=== PATIENT | female | born 1990 | race African-American/Black ===

== ENCOUNTER 2019-10-13 15:47 | Observation (INO) | payer OTHER ==
--- NOTE | 2019-10-13 16:08 | PCM.PREANE ---
Preanesthetic Assessment - Anesthesia/Transfusion/Family Hx Anesthesia History: No Prior Anesthesia Family History of Anesthesia Reaction: No Transfusion History: No Prior Transfusion(s) - Physical Assessment NPO Status Date: 10/13/19 NPO Status Time: 08:00 Height: 1.63 m Weight: 81.647 kg ASA Class: 1E - Allergies Allergies/Adverse Reactions: Allergies Allergy/AdvReac Type Severity Reaction Status Date / Time No Known Allergies Allergy Verified 10/13/19 16:01 - Acknowledgements Anesthesia Type Planned: Spinal Pt an Appropriate Candidate for the Planned Anesthesia: Yes Alternatives and Risks of Anesthesia Discussed w Pt/Guardian: Yes Pt/Guardian Understands and Agrees with Anesthesia Plan: Yes PreAnesthesia Questionnaire CHARGE ACCOUNT CLERK History: Reports: Endocrine/Metabolic History: Reports: Obesity/BMI 30+ - Past Surgical History Head Surgeries/Procedures: Reports: None - SUBSTANCE USE Smoking Status *Q: Never Smoker Recreational Drug Use History: No - HOME MEDS Home Medications: Home Meds Ondansetron [Zofran] 4 mg PO ASDIRECTED PRN 10/13/19 [History] Promethazine [Phenergan] 25 mg PO ASDIRECTED PRN 10/13/19 [History]
[2019-10-13] MEDS ORDERED: Sodium Chloride 0.9% 20 ML ONE (16:11)
[2019-10-13] MEDS ORDERED: ceFAZolin 1 GM Vial ONE (16:11)
[2019-10-13] MEDS ORDERED: Misoprostol 200 MCG Tab PO PRN (16:52)
[2019-10-13] MEDS ORDERED: Water For Irrigation,Sterile 1,000 ML Container IRR PRN (16:52)
[2019-10-13] MEDS ORDERED: Nalbuphine 10 MG/1 ML Vial IVPUSH PRN (16:52)
[2019-10-13] MEDS ORDERED: Sodium Chloride 0.9% 2.5 ML Syringe FLUSH PRN (16:52)
[2019-10-13] MEDS ORDERED: Sodium Chloride 0.9% 10 ML Syringe FLUSH PRN (16:52)
[2019-10-13] MEDS ORDERED: Tranexamic Acid 1,000 MG in Sodium Chloride 0.9% 100 ML IV PRN (16:52)
[2019-10-13] MEDS ORDERED: Carboprost Tromethamine 250 MCG/1 ML Amp IM PRN (16:52)
[2019-10-13] MEDS ORDERED: Butorphanol 1 MG/ML SDV IVPUSH PRN (16:52)
[2019-10-13] MEDS ORDERED: Sodium Chloride 0.9% 10 ML SDV IV PRN (16:52)
[2019-10-13] MEDS ORDERED: Methylergonovine 0.2 MG/1 ML Amp IM PRN (16:52)
[2019-10-13] MEDS ORDERED: Lidocaine 1% 50 ML MDV INJECT PRN (16:52)
[2019-10-13] MEDS ORDERED: Lactated Ringers 1,000 ML IV SCH (17:00)
--- NOTE | 2019-10-13 17:13 | PCM.POSTAN ---
POST ANESTHESIA ASSESSMENT - MENTAL STATUS Mental Status: Alert - VITAL SIGNS Vital Signs: Last Vital Signs Temp 36.8 C 10/13/19 16:59 Pulse 64 10/13/19 17:09 Resp 14 10/13/19 17:09 BP 122/73 10/13/19 17:09 Pulse Ox 100 10/13/19 17:09 - RESPIRATORY Respiratory Status: Respiratory Rate WNL - CARDIOVASCULAR CV Status: Pulse Rate WNL - GASTROINTESTINAL GI Status: No Symptoms - POST OP HYDRATION Hydration Status: Adequate & Stable
--- NOTE | 2019-10-13 17:45 | OR ---
SURGEON: Jer Galarza MD DATE OF PROCEDURE: PREOPERATIVE DIAGNOSIS: Intrauterine at 22-23 weeks with cervical incompetence. POSTOPERATIVE DIAGNOSIS: Intrauterine at 22-23 weeks with cervical incompetence. OPERATION PERFORMED: Emergency Becker cerclage. PRIMARY SURGEON: Jer Galarza MD. OPERATING COST CLERK: OR tech. ANESTHESIA: Spinal, Dano Paulson. ESTIMATED BLOOD LOSS: Minimum. COMPLICATION: None. INDICATIONS FOR SURGERY: This patient is primigravida who has been followed in our office. She came here today for her 22 weeks' visit, which was unremarkable. She had really no risk factor other than the fact that she had multiple large fibroids in her uterus prior to her . The patient went today for her anatomy ultrasound, and she was found to have shortening of the cervix. Her cervical length was less than 1 cm and there was channeling of fluid into the cervical canal. I reviewed the ultrasound and concurred with the fact that the patient does have cervical incompetence. I did a speculum exam, and I could see the membrane was through the cervical opening, so we decided to do an emergency cerclage. I explained that to the patient and her , and we proceeded with the cerclage. PROCEDURE IN DETAIL: The patient was brought to the OR, properly identified. After adequate level of spinal anesthesia, the patient was placed in Trendelenburg position, and after waiting for 10 minutes for the amniotic fluid to recede from the cervical canal, we proceeded to prep and drape the patient as usual. Nicole catheter was used to empty the bladder and weighted speculum was placed in vagina. Using Mersilene band, Becker cerclage was performed in a circular fashion. Sutured around the cervix and tied with due amount of tension, did not strangle the cervix. Once was that accomplished, the procedure ended. The instrument and sponge count was correct. The patient tolerated the procedure well, went to recovery room in stable general condition. NINA / KRISTIN /[id number]
[2019-10-13] MEDS ORDERED: Acetaminophen/oxyCODONE 325-5 MG Tab PO PRN ×2 (21:56→21:59)
[2019-10-14] MEDS ORDERED: Betamethasone Acetate/Betamethasone Sod Phosphate 30 MG/5 ML MDV IM ONE (08:05)
--- NOTE | 2019-10-14 08:22 | PCM48HPAN ---
Post Anesthesia Note - EVALUATION WITHIN 48HRS OF ANESTHETIC Vital Signs in Normal Range: Yes Patient Participated in Evaluation: Yes Respiratory Function Stable: Yes Airway Patent: Yes Cardiovascular Function Stable: Yes Hydration Status Stable: Yes Pain Control Satisfactory: Yes Nausea and Vomiting Control Satisfactory: Yes Mental Status Recovered: Yes Vital Signs: Last Vital Signs Temp 36.3 C 10/14/19 04:00 Pulse 65 10/14/19 04:00 Resp 18 10/14/19 04:00 BP 136/75 10/14/19 04:00 Pulse Ox 100 10/14/19 04:00 - COMMENTS/OBSERVATIONS Free Text/Narrative:: Dressed and ready to go home.
--- NOTE | 2019-10-14 10:28 | PCM.OPNOTE ---
- General Post-Op/Procedure Note Date of Surgery/Procedure: 10/13/19 Operative Procedure(s): Becker Cerclage Pre Op Diagnosis: [id number], Cervical incompetance. Post-Op Diagnosis: Same Anesthesia Technique: Spinal Primary Surgeon: Jer Galarza Complications: None Condition: Good Free Text/Narrative:: Intake & Output 10/13/19 10/14/19 10/14/19 22:59 06:59 14:59 Intake Total 700 Output Total 375 Balance 700 -375
--- NOTE | 2019-10-14 10:29 | PCM.SURGPN ---
- General Info Date of Service: 10/14/19 POD#: 1 Functional Status: Reports: Pain Controlled - Review of Systems General: Reports: No Symptoms HEENT: Reports: No Symptoms Pulmonary: Reports: No Symptoms Cardiovascular: Reports: No Symptoms Gastrointestinal: Reports: No Symptoms Genitourinary: Reports: No Symptoms Musculoskeletal: Reports: No Symptoms Skin: Reports: No Symptoms Neurological: Reports: No Symptoms Psychiatric: Reports: No Symptoms - Patient Data Vitals - Most Recent: Last Vital Signs Temp 36.3 C 10/14/19 08:00 Pulse 76 10/14/19 08:00 Resp 14 10/14/19 08:00 BP 123/78 10/14/19 08:00 Pulse Ox 98 10/14/19 08:00 Weight - Most Recent: 81.647 kg I&O - Last 24 Hours: Intake & Output 10/13/19 10/14/19 10/14/19 22:59 06:59 14:59 Intake Total 700 Output Total 375 Balance 700 -375 Lab Results Last 24 Hrs: Laboratory Results - last 24 hr 10/13/19 10/13/19 Range/Units 20:26 20:26 WBC 9.39 (4.0-11.0) K/uL RBC 2.95 L (4.30-5.90) M/uL Hgb 8.4 L (12.0-16.0) g/dL Hct 26.8 L (36.0-46.0) % MCV 90.8 (80.0-98.0) fL MCH 28.5 (27.0-32.0) pg MCHC 31.3 (31.0-37.0) g/dL RDW Std Deviation 44.1 (28.0-62.0) fl RDW Coeff of Hermelindo 13 (11.0-15.0) % Plt Count 299 (150-400) K/uL MPV 10.00 (7.40-12.00) fL Nucleated RBC % 0.0 /100WBC Nucleated RBCs # 0 K/uL Blood Type A POSITIVE Antibody Screen NEGATIVE Med Orders - Current: Current Medications Butorphanol Tartrate (Stadol) 1 mg IVPUSH Q1H PRN PRN Reason: Pain Carboprost Tromethamine (Hemabate Ds) 250 mcg IM ASDIRECTED PRN PRN Reason: Post Hemorrhage Lactated Ringer's (Ringers, Lactated) 1,000 mls @ 150 mls/hr IV ASDIRECTED JASMYNE Last Admin: 10/13/19 16:00 Dose: 150 mls/hr Tranexamic Acid 1,000 mg/ (Sodium Chloride) 110 mls @ 660 mls/hr IV ONETIME PRN PRN Reason: Bleeding Lidocaine HCl (Xylocaine 1%) 50 ml INJECT ONETIME PRN PRN Reason: Laceration repair Methylergonovine Maleate (Methergine) 0.2 mg IM ASDIRECTED PRN PRN Reason: Post Hemorrhage Misoprostol (Cytotec) 200 mcg PO ONETIME PRN PRN Reason: Post Hemorrhage Nalbuphine HCl (Nubain) 10 mg IVPUSH Q1H PRN PRN Reason: Pain (severe 7-10) Oxycodone/Acetaminophen (Percocet 325-5 Mg) 1 tab PO Q4H PRN PRN Reason: Pain (moderate 4-6) Last Admin: 10/13/19 22:14 Dose: 1 tab Oxycodone/Acetaminophen (Percocet 325-5 Mg) 2 tab PO Q4H PRN PRN Reason: Pain (severe 7-10) Sodium Chloride (Saline Flush) 10 ml FLUSH ASDIRECTED PRN PRN Reason: Keep Vein Open Sodium Chloride (Saline Flush) 2.5 ml FLUSH ASDIRECTED PRN PRN Reason: Keep Vein Open Sodium Chloride (Normal Saline) 10 ml IV ASDIRECTED PRN PRN Reason: IV Use Sterile Water (Sterile Water For Irrigation) 1,000 ml IRR ASDIRECTED PRN PRN Reason: delivery Discontinued Medications Betamethasone Acet/Betameth SodPhos (Celestone Soluspan 6 Mg/Ml) 12 mg IM ONETIME ONE Stop: 10/14/19 08:06 Cefazolin Sodium (Ancef) Confirm Administered Dose 1 gm .ROUTE .STK-MED ONE Stop: 10/13/19 16:12 Sodium Chloride (Normal Saline) Confirm Administered Dose 20 mls @ as directed .ROUTE .STK-MED ONE Stop: 10/13/19 16:12 - Exam Wound/Incisions: Healing Well General: Alert, Oriented HEENT: Pupils Equal Neck: Supple Lungs: Clear to Auscultation, Normal Respiratory Effort Cardiovascular: Regular Rate, Regular Rhythm GI/Abdominal Exam: Normal Bowel Sounds, Soft, Non-Tender, No Organomegaly, No Distention, No Abnormal Bruit, No Mass, Pelvis Stable Extremities: Normal Inspection, Normal Range of Motion, Non-Tender, No Pedal Edema, Normal Capillary Refill Skin: Warm, Dry, Intact Neurological: No New Focal Deficit Psy/Mental Status: Alert, Normal Affect, Normal Mood Sepsis Event Note - Evaluation Sepsis Screening Result: No Definite Risk - Focused Exam Vital Signs: Vital Signs Temp Pulse Resp BP BP Pulse Ox 10/14/19 08:00 36.3 C 76 14 123/78 98 10/14/19 04:00 36.3 C 65 18 136/75 100 10/14/19 00:20 36.6 C 75 16 124/62 97 Date Exam was Performed: 10/14/19 Time Exam was Performed: 10:28 - Problem List Review Problem List Initiated/Reviewed/Updated: Yes - My Orders Last 24 Hours: Active Orders 24 hr Category Date Time Status Patient Status [ADT] Routine ADT 10/13/19 16:55 Active Heart Tones [RC] ASDIRECTED Care 10/13/19 16:52 Active May Shower [RC] ASDIRECTED Care 10/13/19 16:55 Active Notify Provider [RC] PRN Care 10/13/19 16:55 Active Ready for Discharge [RC] PER UNIT ROUTINE Care 10/14/19 08:21 Active Up ad [place] [RC] ASDIRECTED Care 10/13/19 16:55 Active Vital Signs [RC] PER UNIT ROUTINE Care 10/13/19 16:55 Active Regular Diet [DIET] Diet 10/13/19 Dinner Active RPR (SYPHILIS SERO) W/ RFLX [REF] Routine Lab 10/13/19 20:26 Received Acetaminophen/oxyCODONE [Percocet 325-5 MG] Med 10/13/19 21:56 Active 1 tab PO Q4H PRN Acetaminophen/oxyCODONE [Percocet 325-5 MG] Med 10/13/19 21:59 Active 2 tab PO Q4H PRN Butorphanol [Stadol] Med 10/13/19 16:52 Active 1 mg IVPUSH Q1H PRN Carboprost Tromethamine [Hemabate DS] Med 10/13/19 16:52 Active 250 mcg IM ASDIRECTED PRN Lactated Ringers [Ringers, Lactated] 1,000 ml Med 10/13/19 17:00 Active IV ASDIRECTED Lidocaine 1% [Xylocaine 1%] Med 10/13/19 16:52 Active 50 ml INJECT ONETIME PRN Methylergonovine [Methergine] Med 10/13/19 16:52 Active 0.2 mg IM ASDIRECTED PRN Nalbuphine [Nubain] Med 10/13/19 16:52 Active 10 mg IVPUSH Q1H PRN Sodium Chloride 0.9% [Normal Saline] Med 10/13/19 16:52 Active 10 ml IV ASDIRECTED PRN Sodium Chloride 0.9% [Saline Flush] Med 10/13/19 16:52 Active 10 ml FLUSH ASDIRECTED PRN Sodium Chloride 0.9% [Saline Flush] Med 10/13/19 16:52 Active 2.5 ml FLUSH ASDIRECTED PRN Tranexamic Acid [Cyklokapron] 1,000 mg Med 10/13/19 16:52 Active Sodium Chloride 0.9% [Normal Saline] 100 ml IV ONETIME Water For Irrigation,Sterile [Sterile Water for Med 10/13/19 16:52 Active Irrigation] 1,000 ml IRR ASDIRECTED PRN miSOPROStoL [Cytotec] Med 10/13/19 16:52 Active 200 mcg PO ONETIME PRN Peripheral IV Insertion Adult [OM.PC] Routine Oth 10/13/19 16:55 Ordered Resuscitation Status Routine Resus Stat 10/13/19 16:52 Ordered Medication Orders Butorphanol Tartrate (Stadol) 1 mg IVPUSH Q1H PRN PRN Reason: Pain Carboprost Tromethamine (Hemabate Ds) 250 mcg IM ASDIRECTED PRN PRN Reason: Post Hemorrhage Lactated Ringer's (Ringers, Lactated) 1,000 mls @ 150 mls/hr IV ASDIRECTED JASMYNE Last Admin: 10/13/19 16:00 Dose: 150 mls/hr Tranexamic Acid 1,000 mg/ (Sodium Chloride) 110 mls @ 660 mls/hr IV ONETIME PRN PRN Reason: Bleeding Lidocaine HCl (Xylocaine 1%) 50 ml INJECT ONETIME PRN PRN Reason: Laceration repair Methylergonovine Maleate (Methergine) 0.2 mg IM ASDIRECTED PRN PRN Reason: Post Hemorrhage Misoprostol (Cytotec) 200 mcg PO ONETIME PRN PRN Reason: Post Hemorrhage Nalbuphine HCl (Nubain) 10 mg IVPUSH Q1H PRN PRN Reason: Pain (severe 7-10) Oxycodone/Acetaminophen (Percocet 325-5 Mg) 1 tab PO Q4H PRN PRN Reason: Pain (moderate 4-6) Last Admin: 10/13/19 22:14 Dose: 1 tab Oxycodone/Acetaminophen (Percocet 325-5 Mg) 2 tab PO Q4H PRN PRN Reason: Pain (severe 7-10) Sodium Chloride (Saline Flush) 10 ml FLUSH ASDIRECTED PRN PRN Reason: Keep Vein Open Sodium Chloride (Saline Flush) 2.5 ml FLUSH ASDIRECTED PRN PRN Reason: Keep Vein Open Sodium Chloride (Normal Saline) 10 ml IV ASDIRECTED PRN PRN Reason: IV Use Sterile Water (Sterile Water For Irrigation) 1,000 ml IRR ASDIRECTED PRN PRN Reason: delivery - Assessment Assessment (Free Text/Narrative):: Sports emergency Becker's cerclage the patient have no bleeding and no contraction and no evidence of rupture membrane. We will give her her first dose of the steroid today and we'll send her home to be followed in the office next Sunday - Plan Plan (Free Text/Narrative):: Bedrest to be followed in the office next Sunday
--- NOTE | 2019-10-14 10:30 | PCM.DCSUM1 ---
Discharge Summary - Hospital Course Diagnosis: Stroke: No - Discharge Data Discharge Date: 10/14/19 Discharge Disposition: Home, Self-Care 01 Condition: Good - Referral to Home Health Primary Care Physician: Jer Galarza MD - Patient Summary/Data Operative Procedure(s) Performed: Becker Cerclage - Patient Instructions Diet: Usual Diet as Tolerated Activity: As Tolerated Driving: Do Not Drive Showering/Bathing: May Shower - Discharge Plan Home Medications: Home Meds Ondansetron [Zofran] 4 mg PO ASDIRECTED PRN 10/13/19 [History] Promethazine [Phenergan] 25 mg PO ASDIRECTED PRN 10/13/19 [History] Patient Handouts: Cervical Cerclage, Betamethasone injection, Cervical Cerclage , Care After Referrals: [facility] [Outside] Jer Galarza MD [Primary Care Provider] - 10/17/19 1:15 pm - Discharge Summary/Plan Comment DC Time >30 min.: Yes - General Info Date of Service: 10/14/19 Functional Status: Reports: Pain Controlled - Review of Systems General: Reports: No Symptoms HEENT: Reports: No Symptoms Pulmonary: Reports: No Symptoms Cardiovascular: Reports: No Symptoms Gastrointestinal: Reports: No Symptoms Genitourinary: Reports: No Symptoms Musculoskeletal: Reports: No Symptoms Skin: Reports: No Symptoms Neurological: Reports: No Symptoms Psychiatric: Reports: No Symptoms - Patient Data Vitals - Most Recent: Last Vital Signs Temp 36.3 C 10/14/19 08:00 Pulse 76 10/14/19 08:00 Resp 14 10/14/19 08:00 BP 123/78 10/14/19 08:00 Pulse Ox 98 10/14/19 08:00 Weight - Most Recent: 81.647 kg I&O - Last 24 hours: Intake & Output 10/13/19 10/14/19 10/14/19 22:59 06:59 14:59 Intake Total 700 Output Total 375 Balance 700 -375 Lab Results - Last 24 hrs: Laboratory Results - last 24 hr 10/13/19 10/13/19 Range/Units 20:26 20:26 WBC 9.39 (4.0-11.0) K/uL RBC 2.95 L (4.30-5.90) M/uL Hgb 8.4 L (12.0-16.0) g/dL Hct 26.8 L (36.0-46.0) % MCV 90.8 (80.0-98.0) fL MCH 28.5 (27.0-32.0) pg MCHC 31.3 (31.0-37.0) g/dL RDW Std Deviation 44.1 (28.0-62.0) fl RDW Coeff of Hermelindo 13 (11.0-15.0) % Plt Count 299 (150-400) K/uL MPV 10.00 (7.40-12.00) fL Nucleated RBC % 0.0 /100WBC Nucleated RBCs # 0 K/uL Blood Type A POSITIVE Antibody Screen NEGATIVE Med Orders - Current: Current Medications Butorphanol Tartrate (Stadol) 1 mg IVPUSH Q1H PRN PRN Reason: Pain Carboprost Tromethamine (Hemabate Ds) 250 mcg IM ASDIRECTED PRN PRN Reason: Post Hemorrhage Lactated Ringer's (Ringers, Lactated) 1,000 mls @ 150 mls/hr IV ASDIRECTED JASMYNE Last Admin: 10/13/19 16:00 Dose: 150 mls/hr Tranexamic Acid 1,000 mg/ (Sodium Chloride) 110 mls @ 660 mls/hr IV ONETIME PRN PRN Reason: Bleeding Lidocaine HCl (Xylocaine 1%) 50 ml INJECT ONETIME PRN PRN Reason: Laceration repair Methylergonovine Maleate (Methergine) 0.2 mg IM ASDIRECTED PRN PRN Reason: Post Hemorrhage Misoprostol (Cytotec) 200 mcg PO ONETIME PRN PRN Reason: Post Hemorrhage Nalbuphine HCl (Nubain) 10 mg IVPUSH Q1H PRN PRN Reason: Pain (severe 7-10) Oxycodone/Acetaminophen (Percocet 325-5 Mg) 1 tab PO Q4H PRN PRN Reason: Pain (moderate 4-6) Last Admin: 10/13/19 22:14 Dose: 1 tab Oxycodone/Acetaminophen (Percocet 325-5 Mg) 2 tab PO Q4H PRN PRN Reason: Pain (severe 7-10) Sodium Chloride (Saline Flush) 10 ml FLUSH ASDIRECTED PRN PRN Reason: Keep Vein Open Sodium Chloride (Saline Flush) 2.5 ml FLUSH ASDIRECTED PRN PRN Reason: Keep Vein Open Sodium Chloride (Normal Saline) 10 ml IV ASDIRECTED PRN PRN Reason: IV Use Sterile Water (Sterile Water For Irrigation) 1,000 ml IRR ASDIRECTED PRN PRN Reason: delivery Discontinued Medications Betamethasone Acet/Betameth SodPhos (Celestone Soluspan 6 Mg/Ml) 12 mg IM ONETIME ONE Stop: 10/14/19 08:06 Cefazolin Sodium (Ancef) Confirm Administered Dose 1 gm .ROUTE .STK-MED ONE Stop: 10/13/19 16:12 Sodium Chloride (Normal Saline) Confirm Administered Dose 20 mls @ as directed .ROUTE .STK-MED ONE Stop: 10/13/19 16:12 - Exam General: Reports: Alert, Oriented HEENT: Reports: Pupils Equal, Pupils Reactive, EOMI, Mucous Membr. Moist/[place] Neck: Reports: Supple Lungs: Reports: Clear to Auscultation, Normal Respiratory Effort Cardiovascular: Reports: Regular Rate, Regular Rhythm GI/Abdominal Exam: Normal Bowel Sounds, Soft, Non-Tender, No Organomegaly, No Distention, No Abnormal Bruit, No Mass, Pelvis Stable (Female) Exam: Normal External Exam, Normal Speculum Exam, Normal Bimanual Exam Rectal (Female) Exam: Normal Exam, Normal Rectal Tone Back Exam: Reports: Normal Inspection, Full Range of Motion Extremities: Normal Inspection, Normal Range of Motion, Non-Tender, No Pedal Edema, Normal Capillary Refill Skin: Reports: Warm, Dry, Intact Wound/Incisions: Reports: Healing Well Neurological: Reports: No New Focal Deficit Psy/Mental Status: Reports: Alert, Normal Affect, Normal Mood
== END 2019-10-14 11:15 | disposition home or self-care (01) ==
LOC: MW.SDS 15:47 → MW.OB 16:55
PROVIDERS: ADMIT Obstetrics & Gynecology; ATTEND Obstetrics & Gynecology
DX: O34.32 Maternal care for cervical incompetence, second trimester (principal); O99.212 Obesity complicating pregnancy, second trimester; E66.9 Obesity, unspecified; Z3A.22 22 weeks gestation of pregnancy; Z79.899 Other long term (current) drug therapy; Z68.30 Body mass index [BMI] 30.0-30.9, adult
CPT/HCPCS: 36415; 59320; 85027; 86592; 86850; 86900; 86901; A9270; J0690; J0702; J7120; 00948

== ENCOUNTER 2019-11-19 04:22 | Inpatient (IN) | payer OTHER ==
[2019-11-19] MEDS ORDERED: Sodium Chloride 0.9% 10 ML SDV IV PRN ×3 (08:49→09:38)
[2019-11-19] MEDS ORDERED: Sodium Chloride 0.9% 10 ML Syringe FLUSH PRN ×3 (08:49→09:38)
[2019-11-19] MEDS ORDERED: Sodium Chloride 0.9% 2.5 ML Syringe FLUSH PRN ×3 (08:49→09:38)
[2019-11-19] MEDS ORDERED: Terbutaline 1 MG/ML SDV SUBCUT ONE ×2 (08:52→10:59)
[2019-11-19] MEDS ORDERED: Lactated Ringers 1,000 ML IV SCH ×2 (09:00→09:45)
[2019-11-19] MEDS ORDERED: Dexamethasone 10 MG/ML SDV IVPUSH ONE (09:30)
--- NOTE | 2019-11-19 09:34 | US ---
Limited obstetrical ultrasound: Multiple real-time images were obtained transvaginally of the cervix. Comparison: Previous obstetrical ultrasound of 10/13/19. presentation: Breech Heart rate: 168 BPM Cervix: Incompetent cervix with widening of the internal cervical os with slight widening of the external cervical os. Impression: 1. Incompetent cervix which is worsening from previous study. Current study shows slight widening of the external cervical os. Diagnostic code #5 Study was dictated in MDT
[2019-11-19] MEDS ORDERED: Betamethasone Acetate/Betamethasone Sod Phosphate 30 MG/5 ML MDV IM ONE (09:37)
[2019-11-19] MEDS ORDERED: Tranexamic Acid 1,000 MG in Sodium Chloride 0.9% 100 ML IV PRN ×2 (09:38→15:52)
[2019-11-19] MEDS ORDERED: Nalbuphine 10 MG/1 ML Vial IVPUSH PRN ×2 (09:38→14:33)
[2019-11-19] MEDS ORDERED: Misoprostol 200 MCG Tab PO PRN (09:38)
[2019-11-19] MEDS ORDERED: Carboprost Tromethamine 250 MCG/1 ML Amp IM PRN (09:38)
[2019-11-19] MEDS ORDERED: Lidocaine 1% 50 ML MDV INJECT PRN (09:38)
[2019-11-19] MEDS ORDERED: Butorphanol 1 MG/ML SDV IVPUSH PRN (09:38)
[2019-11-19] MEDS ORDERED: Citric Acid/Sodium Citrate Solution 30 ML Cup PO ONE (09:38)
[2019-11-19] MEDS ORDERED: Water For Irrigation,Sterile 1,000 ML Container IRR PRN (09:38)
[2019-11-19] MEDS ORDERED: Methylergonovine 0.2 MG/1 ML Amp IM PRN ×2 (09:38→15:52)
[2019-11-19] MEDS ORDERED: Oxytocin/0.9 % Sodium Chloride 30 UNIT/500 ML BAG IV SCH ×2 (09:45)
[2019-11-19] MEDS: Lactated Ringers 1,000 ML IV SCH ×3 (10:34→23:45)
--- NOTE | 2019-11-19 12:58 | PCM.PREANE ---
Preanesthetic Assessment - Anesthesia/Transfusion/Family Hx Anesthesia History: Prior Anesthesia Without Reaction Family History of Anesthesia Reaction: No Transfusion History: No Prior Transfusion(s) Intubation History: Unknown - Review of Systems General: No Symptoms Pulmonary: No Symptoms Cardiovascular: No Symptoms Gastrointestinal: No Symptoms Neurological: No Symptoms Other: Reports: None - Physical Assessment NPO Status Date: 11/19/19 NPO Status Time: 11:00 Vital Signs: 110/78 78 96% FHT 160 Height: 5 ft 4 in Weight: 73.028 kg ASA Class: 2E Mental Status: Alert & Oriented x3 Dentition: Reports: Normal Dentition ROM/Head Extension: Full Lungs: Clear to Auscultation, Normal Respiratory Effort Cardiovascular: Regular Rate, Regular Rhythm - Lab Values: Laboratory Last Values WBC 16.94 K/uL (4.0-11.0) H 11/19/19 09:50 RBC 3.74 M/uL (4.30-5.90) L 11/19/19 09:50 Hgb 11.0 g/dL (12.0-16.0) L 11/19/19 09:50 Hct 34.8 % (36.0-46.0) L 11/19/19 09:50 MCV 93.0 fL (80.0-98.0) 11/19/19 09:50 MCH 29.4 pg (27.0-32.0) 11/19/19 09:50 MCHC 31.6 g/dL (31.0-37.0) 11/19/19 09:50 RDW Std Deviation 55.5 fl (28.0-62.0) 11/19/19 09:50 RDW Coeff of Hermelindo 16 % (11.0-15.0) H 11/19/19 09:50 Plt Count 264 K/uL (150-400) 11/19/19 09:50 MPV 10.40 fL (7.40-12.00) 11/19/19 09:50 Nucleated RBC % 0.0 /100WBC 11/19/19 09:50 Nucleated RBCs # 0 K/uL 11/19/19 09:50 Urine Color YELLOW 11/19/19 04:50 Urine Appearance CLEAR 11/19/19 04:50 Urine pH 6.0 (5.0-8.0) 11/19/19 04:50 Ur Specific [place] >= 1.030 (1.001-1.035) 11/19/19 04:50 Urine Protein NEGATIVE mg/dL (NEGATIVE) 11/19/19 04:50 Urine Glucose (UA) NEGATIVE mg/dL (NEGATIVE) 11/19/19 04:50 Urine Ketones 15 mg/dL (NEGATIVE) H 11/19/19 04:50 Urine Occult Blood MODERATE (NEGATIVE) H 11/19/19 04:50 Urine Nitrite NEGATIVE (NEGATIVE) 11/19/19 04:50 Urine Bilirubin NEGATIVE (NEGATIVE) 11/19/19 04:50 Urine Urobilinogen 0.2 EU/dL (<2.0) 11/19/19 04:50 Ur Leukocyte Esterase SMALL (NEGATIVE) H 11/19/19 04:50 Blood Type A POSITIVE 11/19/19 09:50 Antibody Screen NEGATIVE 11/19/19 09:50 - Allergies Allergies/Adverse Reactions: Allergies Allergy/AdvReac Type Severity Reaction Status Date / Time No Known Allergies Allergy Verified 10/13/19 16:01 - Blood Blood Available: Yes - Anesthesia Plan Free Text/Narrative:: Spinal anesthesia Pre-Op Medication Ordered: None - Acknowledgements Anesthesia Type Planned: Spinal Pt an Appropriate Candidate for the Planned Anesthesia: Yes Alternatives and Risks of Anesthesia Discussed w Pt/Guardian: Yes Pt/Guardian Understands and Agrees with Anesthesia Plan: Yes Additional Comments: Pt verbalized understanding PreAnesthesia Questionnaire HEENT History: Reports: None Cardiovascular History: Reports: None Respiratory History: Reports: None Gastrointestinal History: Reports: None Genitourinary History: Reports: None SILO TENDER History: Reports: None, Musculoskeletal History: Reports: None Neurological History: Reports: None Psychiatric History: Reports: None Endocrine/Metabolic History: Reports: None Hematologic History: Reports: None Oncologic (Cancer) History: Reports: None Dermatologic History: Reports: None - Infectious Disease History Infectious Disease History: Reports: None - Past Surgical History Head Surgeries/Procedures: Reports: None HEENT Surgical History: Reports: None Cardiovascular Surgical History: Reports: None Respiratory Surgical History: Reports: None GI Surgical History: Reports: None Female Surgical History: Reports: None Endocrine Surgical History: Reports: None Neurological Surgical History: Reports: None Musculoskeletal Surgical History: Reports: None Oncologic Surgical History: Reports: None Dermatological Surgical History: Reports: None - HOME MEDS Home Medications: Home Meds Ondansetron [Zofran] 4 mg PO ASDIRECTED PRN 10/13/19 [History] Promethazine [Phenergan] 25 mg PO ASDIRECTED PRN 10/13/19 [History] Ferrous Sulfate [Iron] 325 mg PO DAILY 11/19/19 [History] - CURRENT (IN HOUSE) MEDS Current Meds: Current Medications Butorphanol Tartrate (Stadol) 1 mg IVPUSH Q1H PRN PRN Reason: Pain Carboprost Tromethamine (Hemabate Ds) 250 mcg IM ASDIRECTED PRN PRN Reason: Post Hemorrhage Lactated Ringer's (Ringers, Lactated) 1,000 mls @ 999 mls/hr IV .BOLUS [facility] Last Admin: 11/19/19 09:40 Dose: 999 mls/hr Tranexamic Acid 1,000 mg/ (Sodium Chloride) 110 mls @ 660 mls/hr IV ONETIME PRN PRN Reason: Bleeding Lactated Ringer's (Ringers, Lactated) 1,000 mls @ 150 mls/hr IV ASDIRECTED [facility] Last Admin: 11/19/19 10:34 Dose: 150 mls/hr Oxytocin/Sodium Chloride (Oxytocin 30 Unit/500 Ml-Ns) 30 unit in 500 mls @ 999 mls/hr IV TITRATE JASMYNE Lactated Ringer's (Ringers, Lactated) 1,000 mls @ 500 mls/hr IV BOLUS JASMYNE Oxytocin/Sodium Chloride (Oxytocin 30 Unit/500 Ml-Ns) 30 unit in 500 mls @ 250 mls/hr IV TITRATE JASMYNE Lidocaine HCl (Xylocaine 1%) 50 ml INJECT ONETIME PRN PRN Reason: Laceration repair Methylergonovine Maleate (Methergine) 0.2 mg IM ASDIRECTED PRN PRN Reason: Post Hemorrhage Misoprostol (Cytotec) 200 mcg PO ONETIME PRN PRN Reason: Post Hemorrhage Nalbuphine HCl (Nubain) 10 mg IVPUSH Q1H PRN PRN Reason: Pain (severe 7-10) Sodium Chloride (Saline Flush) 10 ml FLUSH ASDIRECTED PRN PRN Reason: Keep Vein Open Sodium Chloride (Saline Flush) 2.5 ml FLUSH ASDIRECTED PRN PRN Reason: Keep Vein Open Sodium Chloride (Normal Saline) 10 ml IV ASDIRECTED PRN PRN Reason: IV Use Sodium Chloride (Saline Flush) 10 ml FLUSH ASDIRECTED PRN PRN Reason: Keep Vein Open Sodium Chloride (Saline Flush) 2.5 ml FLUSH ASDIRECTED PRN PRN Reason: Keep Vein Open Sodium Chloride (Normal Saline) 10 ml IV ASDIRECTED PRN PRN Reason: IV Use Sodium Chloride (Saline Flush) 10 ml FLUSH ASDIRECTED PRN PRN Reason: Keep Vein Open Sodium Chloride (Saline Flush) 2.5 ml FLUSH ASDIRECTED PRN PRN Reason: Keep Vein Open Sodium Chloride (Normal Saline) 10 ml IV ASDIRECTED PRN PRN Reason: IV Use Sterile Water (Sterile Water For Irrigation) 1,000 ml IRR ASDIRECTED PRN PRN Reason: delivery Discontinued Medications Betamethasone Acet/Betameth SodPhos ([place] Soluspan 6 Mg/Ml) 12 mg IM ONETIME ONE Stop: 11/19/19 09:38 Last Admin: 11/19/19 09:47 Dose: 12 mg Citric Acid/Sodium Citrate (Bicitra Solution) 30 ml PO ONETIME ONE Stop: 11/19/19 09:39 Dexamethasone (Dexamethasone) 12 mg IVPUSH ONETIME ONE Stop: 11/19/19 09:31 Terbutaline Sulfate (Brethine) 0.25 mg SUBCUT ONETIME ONE Stop: 11/19/19 08:53 Last Admin: 11/19/19 09:35 Dose: 0.25 mg Terbutaline Sulfate (Brethine) 0.25 mg SUBCUT ONETIME ONE Stop: 11/19/19 11:00 Last Admin: 11/19/19 11:01 Dose: 0.25 mg
[2019-11-19] MEDS ORDERED: Morphine PF 10 MG/10 ML SDV ONE (13:00)
[2019-11-19] MEDS ORDERED: ePHEDrine 50 MG/ML SDV ONE (13:00)
[2019-11-19] MEDS ORDERED: Oxytocin 10 Units/1 ML SDV ONE (13:00)
[2019-11-19] MEDS ORDERED: Ondansetron 4 MG/2 ML SDV ONE (13:00)
[2019-11-19] MEDS ORDERED: Octyl 2-Cyanoacrylate 1 Tube ONE (14:07)
[2019-11-19] MEDS ORDERED: Ondansetron 4 MG/2 ML SDV IVPUSH PRN ×2 (14:33→15:52)
[2019-11-19] MEDS ORDERED: diphenhydrAMINE 50 MG/ML SDV IVPUSH PRN ×2 (14:33→15:52)
[2019-11-19] MEDS ORDERED: fentaNYL 100 MCG/2 ML SDV IVPUSH PRN (14:33)
[2019-11-19] MEDS ORDERED: Naloxone 0.4 MG/ML Syringe IVPUSH PRN (14:33)
[2019-11-19] MEDS ORDERED: Acetaminophen/oxyCODONE 325-5 MG Tab PO PRN ×3 (14:33→15:52)
[2019-11-19] MEDS ORDERED: oxyCODONE 5 MG Tab PO PRN (15:03)
[2019-11-19] MEDS ORDERED: Ibuprofen 800 MG Tab PO PRN (15:03)
[2019-11-19] MEDS ORDERED: Witch Hazel Medicated Pads 40/Jar TOP PRN (15:03)
[2019-11-19] MEDS ORDERED: Ibuprofen 400 MG Tab PO PRN (15:03)
[2019-11-19] MEDS ORDERED: Benzocaine/Menthol 20%-0.5% Spray 78 GM Cannister TOP PRN (15:03)
[2019-11-19] MEDS ORDERED: Bisacodyl 10 MG Supp RECTAL PRN ×2 (15:03→15:52)
[2019-11-19] MEDS ORDERED: Acetaminophen 500 MG Tab PO PRN ×2 (15:03)
[2019-11-19] MEDS ORDERED: Docusate Sodium 100 MG Cap PO PRN (15:03)
[2019-11-19] MEDS ORDERED: Lanolin 100% Cream 7 GM Tube TOP PRN ×2 (15:03→15:52)
--- NOTE | 2019-11-19 15:03 | PCM.LDHP ---
L&D History of Present Illness - General Date of Service: 11/19/19 Admit Problem/Dx: Patient Status Order with Admit Dx/Problem 11/19/19 04:53 Patient Status [ADT] Routine 11/19/19 09:38 Patient Status [ADT] Routine Patient Status [ADT] Routine Admission Diagnosis/Problem Admission Diagnosis/Problem Source of Information: Patient History Limitations: Reports: No Limitations - History of Present Illness Improves with: Reports: None Worsens with: Reports: None Associated Symptoms: Reports: N - Related Data Allergies/Adverse Reactions: Allergies Allergy/AdvReac Type Severity Reaction Status Date / Time No Known Allergies Allergy Verified 10/13/19 16:01 Home Medications: Home Meds Ondansetron [Zofran] 4 mg PO ASDIRECTED PRN 10/13/19 [History] Promethazine [Phenergan] 25 mg PO ASDIRECTED PRN 10/13/19 [History] Ferrous Sulfate [Iron] 325 mg PO DAILY 11/19/19 [History] Past Medical History HEENT History: Reports: None Cardiovascular History: Reports: None Respiratory History: Reports: None Gastrointestinal History: Reports: None Genitourinary History: Reports: None [employer] History: Reports: None, Musculoskeletal History: Reports: None Neurological History: Reports: None Psychiatric History: Reports: None Endocrine/Metabolic History: Reports: None Hematologic History: Reports: None Oncologic (Cancer) History: Reports: None Dermatologic History: Reports: None - Infectious Disease History Infectious Disease History: Reports: None - Past Surgical History Head Surgeries/Procedures: Reports: None HEENT Surgical History: Reports: None Cardiovascular Surgical History: Reports: None Respiratory Surgical History: Reports: None GI Surgical History: Reports: None Female Surgical History: Reports: None Endocrine Surgical History: Reports: None Neurological Surgical History: Reports: None Musculoskeletal Surgical History: Reports: None Oncologic Surgical History: Reports: None Dermatological Surgical History: Reports: None Social & Family History - Family History Family Medical History: Noncontributory - Tobacco Use Smoking Status *Q: Never Smoker Second Hand Smoke Exposure: No - Caffeine Use Caffeine Use: Reports: Soda - Recreational Drug Use Recreational Drug Use: No H&P Review of Systems - Review of Systems: Review Of Systems: See Below General: Reports: No Symptoms HEENT: Reports: No Symptoms Pulmonary: Reports: No Symptoms Cardiovascular: Reports: No Symptoms Gastrointestinal: Reports: No Symptoms Genitourinary: Reports: No Symptoms Musculoskeletal: Reports: No Symptoms Skin: Reports: No Symptoms Psychiatric: Reports: No Symptoms Neurological: Reports: No Symptoms Hematologic/Lymphatic: Reports: No Symptoms Immunologic: Reports: No Symptoms L&D Exam - Exam Exam: See Below - Vital Signs Vital Signs: Last Vital Signs Temp 36 C L 11/19/19 14:38 Pulse 120 H 11/19/19 14:55 Resp 22 H 11/19/19 14:55 BP 95/57 L 11/19/19 14:55 Pulse Ox 100 11/19/19 14:55 Weight: 73.028 kg - OB Specific Contraction Intensity: Moderate Movement: Active Heart Tones: Present Presentation: Breech - Guillermo Score Guillermo Score Cervix Position: Anterior Guillermo Score Consistency: Soft Guillermo Score Effacement: 51-70% Guillermo Score Dilation: 1-2 cm Guillermo Score Infant's Station: -3 Guillermo Score Total: 7 - Exam General: Alert, Oriented HEENT: PERRLA, Conjunctiva Clear, EACs Clear, EOMI, Hearing Intact, Mucosa Moist & [place], Nares Patent, Normal Nasal Septum, Posterior Pharynx Clear, TMs Clear Neck: Supple, Trachea Midline Lungs: Clear to Auscultation, Normal Respiratory Effort Cardiovascular: Regular Rate, Regular Rhythm GI/Abdominal Exam: Normal Bowel Sounds, Soft, Non-Tender, No Organomegaly, No Distention, No Abnormal Bruit, No Mass, Pelvis Stable Rectal Exam: Normal Exam, Normal Rectal Tone Genitourinary: Normal external exam, Normal bimanual exam, Normal speculum exam Back Exam: Normal Inspection, Full Range of Motion Extremities: Normal Inspection, Normal Range of Motion, Non-Tender, No Pedal Edema, Normal Capillary Refill Skin: Warm, Dry, Intact Neurological: Cranial Nerves Intact, Reflexes Equal Bilateral Psychiatric: Alert, Normal Affect, Normal Mood - Patient Data Lab Results Last 24 hrs: Laboratory Results - last 24 hr 11/19/19 11/19/19 11/19/19 Range/Units 04:50 09:50 09:50 WBC 16.94 H (4.0-11.0) K/uL RBC 3.74 L (4.30-5.90) M/uL Hgb 11.0 L (12.0-16.0) g/dL Hct 34.8 L (36.0-46.0) % MCV 93.0 (80.0-98.0) fL MCH 29.4 (27.0-32.0) pg MCHC 31.6 (31.0-37.0) g/dL RDW Std Deviation 55.5 (28.0-62.0) fl RDW Coeff of Hermelindo 16 H (11.0-15.0) % Plt Count 264 (150-400) K/uL MPV 10.40 (7.40-12.00) fL Nucleated RBC % 0.0 /100WBC Nucleated RBCs # 0 K/uL Urine Color YELLOW Urine Appearance CLEAR Urine pH 6.0 (5.0-8.0) Ur Specific [place] >= 1.030 (1.001-1.035) Urine Protein NEGATIVE (NEGATIVE) mg/dL Urine Glucose (UA) NEGATIVE (NEGATIVE) mg/dL Urine Ketones 15 H (NEGATIVE) mg/dL Urine Occult Blood MODERATE H (NEGATIVE) Urine Nitrite NEGATIVE (NEGATIVE) Urine Bilirubin NEGATIVE (NEGATIVE) Urine Urobilinogen 0.2 (<2.0) EU/dL Ur Leukocyte Esterase SMALL H (NEGATIVE) Blood Type A POSITIVE Antibody Screen NEGATIVE Result Diagrams: 11/19/19 09:50 Problem List Initiated/Reviewed/Updated: Yes Orders Last 24hrs: Active Orders 24 hr Category Date Time Status Patient Status [ADT] Routine ADT 11/19/19 09:38 Active Patient Status [ADT] Routine ADT 11/19/19 09:38 Active Bradycardia-Neuroaxis [employer] [RC] ROUTINE Care 11/19/19 14:33 Active Hypertension-Neuroaxis [employer] [RC] ROUTINE Care 11/19/19 14:33 Active Hypotension-Neuroaxis [employer] [RC] ROUTINE Care 11/19/19 14:33 Active May Shower [RC] ASDIRECTED Care 11/19/19 09:38 Active Notify Provider Vital Signs [RC] PRN Care 11/19/19 09:40 Active Oxygen Therapy [RC] PER UNIT ROUTINE Care 11/19/19 14:33 Active Up ad [place] [RC] ASDIRECTED Care 11/19/19 09:38 Active Vital Signs [RC] Q1H Care 11/19/19 14:33 Active RPR (SYPHILIS SERO) W/ RFLX [REF] Routine Lab 11/19/19 09:50 Received Acetaminophen/oxyCODONE [Percocet 325-5 MG] Med 11/19/19 14:33 Active 2 tab PO Q6H PRN Butorphanol [Stadol] Med 11/19/19 09:38 Active 1 mg IVPUSH Q1H PRN Carboprost Tromethamine [Hemabate DS] Med 11/19/19 09:38 Active 250 mcg IM ASDIRECTED PRN Lactated Ringers [Ringers, Lactated] 1,000 ml Med 11/19/19 09:00 Active IV .BOLUS Lactated Ringers [Ringers, Lactated] 1,000 ml Med 11/19/19 09:45 Active IV ASDIRECTED Lactated Ringers [Ringers, Lactated] 1,000 ml Med 11/19/19 09:45 Active IV BOLUS Lidocaine 1% [Xylocaine 1%] Med 11/19/19 09:38 Active 50 ml INJECT ONETIME PRN Methylergonovine [Methergine] Med 11/19/19 09:38 Active 0.2 mg IM ASDIRECTED PRN Nalbuphine [Nubain] Med 11/19/19 09:38 Active 10 mg IVPUSH Q1H PRN Nalbuphine [Nubain] Med 11/19/19 14:33 Active 5 mg IVPUSH ASDIRECTED PRN Naloxone [Narcan] Med 11/19/19 14:33 Active 0.1 mg IVPUSH ONETIME PRN Ondansetron [Zofran] Med 11/19/19 14:33 Active 4 mg IVPUSH Q6H PRN Oxytocin/0.9 % Sodium Chloride [Oxytocin 30 Unit/500 ML Med 11/19/19 09:45 Active -NS] 30 unit in 500 ml IV TITRATE Oxytocin/0.9 % Sodium Chloride [Oxytocin 30 Unit/500 ML Med 11/19/19 09:45 Active -NS] 30 unit in 500 ml IV TITRATE Sodium Chloride 0.9% [Normal Saline] Med 11/19/19 08:49 Active 10 ml IV ASDIRECTED PRN Sodium Chloride 0.9% [Normal Saline] Med 11/19/19 09:38 Active 10 ml IV ASDIRECTED PRN Sodium Chloride 0.9% [Normal Saline] Med 11/19/19 09:38 Active 10 ml IV ASDIRECTED PRN Sodium Chloride 0.9% [Saline Flush] Med 11/19/19 08:49 Active 10 ml FLUSH ASDIRECTED PRN Sodium Chloride 0.9% [Saline Flush] Med 11/19/19 09:38 Active 10 ml FLUSH ASDIRECTED PRN Sodium Chloride 0.9% [Saline Flush] Med 11/19/19 09:38 Active 10 ml FLUSH ASDIRECTED PRN Sodium Chloride 0.9% [Saline Flush] Med 11/19/19 08:49 Active 2.5 ml FLUSH ASDIRECTED PRN Sodium Chloride 0.9% [Saline Flush] Med 11/19/19 09:38 Active 2.5 ml FLUSH ASDIRECTED PRN Sodium Chloride 0.9% [Saline Flush] Med 11/19/19 09:38 Active 2.5 ml FLUSH ASDIRECTED PRN Tranexamic Acid [Cyklokapron] 1,000 mg Med 11/19/19 09:38 Active Sodium Chloride 0.9% [Normal Saline] 100 ml IV ONETIME Water For Irrigation,Sterile [Sterile Water for Med 11/19/19 09:38 Active Irrigation] 1,000 ml IRR ASDIRECTED PRN diphenhydrAMINE [Benadryl] Med 11/19/19 14:33 Active 25 mg IVPUSH Q4H PRN fentaNYL [Sublimaze] Med 11/19/19 14:33 Active 50 mcg IVPUSH Q1H PRN miSOPROStoL [Cytotec] Med 11/19/19 09:38 Active 200 mcg PO ONETIME PRN Scalp Electrode [WOMSER] Per Unit Routine Oth 11/19/19 09:38 Ordered Peripheral IV Insertion Adult [OM.PC] Routine Ot 11/19/19 08:49 Ordered Peripheral IV Insertion Adult [OM.PC] Routine Ot 11/19/19 09:38 Ordered Peripheral IV Insertion Adult [OM.PC] Routine Ot 11/19/19 09:38 Ordered Schedule Procedure [COMM] Per Unit Routine Ot 11/19/19 09:38 Ordered Resuscitation Status Routine Resus Stat 11/19/19 04:52 Ordered Medication Orders Butorphanol Tartrate (Stadol) 1 mg IVPUSH Q1H PRN PRN Reason: Pain Carboprost Tromethamine (Hemabate Ds) 250 mcg IM ASDIRECTED PRN PRN Reason: Post Hemorrhage Diphenhydramine HCl (Benadryl) 25 mg IVPUSH Q4H PRN PRN Reason: Itching Stop: 11/20/19 14:33 Fentanyl (Sublimaze) 50 mcg IVPUSH Q1H PRN PRN Reason: Pain (severe 7-10) Lactated Ringer's (Ringers, Lactated) 1,000 mls @ 999 mls/hr IV .BOLUS [facility] Last Admin: 11/19/19 09:40 Dose: 999 mls/hr Tranexamic Acid 1,000 mg/ (Sodium Chloride) 110 mls @ 660 mls/hr IV ONETIME PRN PRN Reason: Bleeding Lactated Ringer's (Ringers, Lactated) 1,000 mls @ 150 mls/hr IV ASDIRECTED [facility] Last Admin: 11/19/19 13:00 Dose: 150 mls/hr Infusion: 11/19/19 13:00 Dose: 150 mls/hr Admin: 11/19/19 10:34 Dose: 150 mls/hr Oxytocin/Sodium Chloride (Oxytocin 30 Unit/500 Ml-Ns) 30 unit in 500 mls @ 999 mls/hr IV TITRATE [facility] Lactated Ringer's (Ringers, Lactated) 1,000 mls @ 500 mls/hr IV BOLUS [facility] Oxytocin/Sodium Chloride (Oxytocin 30 Unit/500 Ml-Ns) 30 unit in 500 mls @ 250 mls/hr IV TITRATE [facility] Lidocaine HCl (Xylocaine 1%) 50 ml INJECT ONETIME PRN PRN Reason: Laceration repair Methylergonovine Maleate (Methergine) 0.2 mg IM ASDIRECTED PRN PRN Reason: Post Hemorrhage Misoprostol (Cytotec) 200 mcg PO ONETIME PRN PRN Reason: Post Hemorrhage Nalbuphine HCl (Nubain) 10 mg IVPUSH Q1H PRN PRN Reason: Pain (severe 7-10) Nalbuphine HCl (Nubain) 5 mg IVPUSH ASDIRECTED PRN PRN Reason: Itching Naloxone HCl (Narcan) 0.1 mg IVPUSH ONETIME PRN PRN Reason: Respiratory Depression Stop: 11/20/19 14:33 Ondansetron HCl (Zofran) 4 mg IVPUSH Q6H PRN PRN Reason: Nausea Oxycodone/Acetaminophen (Percocet 325-5 Mg) 2 tab PO Q6H PRN PRN Reason: Pain (moderate 4-6) Sodium Chloride (Saline Flush) 10 ml FLUSH ASDIRECTED PRN PRN Reason: Keep Vein Open Sodium Chloride (Saline Flush) 2.5 ml FLUSH ASDIRECTED PRN PRN Reason: Keep Vein Open Sodium Chloride (Normal Saline) 10 ml IV ASDIRECTED PRN PRN Reason: IV Use Sodium Chloride (Saline Flush) 10 ml FLUSH ASDIRECTED PRN PRN Reason: Keep Vein Open Sodium Chloride (Saline Flush) 2.5 ml FLUSH ASDIRECTED PRN PRN Reason: Keep Vein Open Sodium Chloride (Normal Saline) 10 ml IV ASDIRECTED PRN PRN Reason: IV Use Sodium Chloride (Saline Flush) 10 ml FLUSH ASDIRECTED PRN PRN Reason: Keep Vein Open Sodium Chloride (Saline Flush) 2.5 ml FLUSH ASDIRECTED PRN PRN Reason: Keep Vein Open Sodium Chloride (Normal Saline) 10 ml IV ASDIRECTED PRN PRN Reason: IV Use Sterile Water (Sterile Water For Irrigation) 1,000 ml IRR ASDIRECTED PRN PRN Reason: delivery Assessment/Plan Comment:: Intrauterine 27 weeks +4 history of incompetent cervix she status post cerclage done at 23 weeks today she presented with contraction and lower abdominal pain as speculum examination shows that there cervix is opened about 3 cm with a cerclage was confirmed with the cervical length ultrasound via the vaginal probe the patient is breech presentation with protruding amniotic fluid bag from by the ultrasound is the patient unstable lie the patient will be scheduled for emergency section and we will try to get the team to fly to here for resuscitation
--- NOTE | 2019-11-19 15:10 | PCM.OPNOTE ---
- General Post-Op/Procedure Note Date of Surgery/Procedure: 11/19/19 Operative Procedure(s): Primary C/section. removal of [place] Cereclage. Pre Op Diagnosis: IUP 27+4 wks breech presentation in labor Post-Op Diagnosis: Same Anesthesia Technique: Spinal Primary Surgeon: Jer Galarza Model Photographers': Ernestina Marie EBL in mLs: 650 Complications: None Condition: Good
[2019-11-19] MEDS ORDERED: Oxytocin 10 Units/1 ML SDV IM PRN (15:52)
[2019-11-19] MEDS ORDERED: Misoprostol 200 MCG Tab RECTAL PRN (15:52)
[2019-11-19] MEDS ORDERED: Ketorolac 15 MG/ML SDV ONE (16:09)
[2019-11-19] MEDS: Ketorolac 30 MG/ML SDV IVPUSH SCH ×2 (16:15→21:38)
--- NOTE | 2019-11-19 16:23 | PCM.POSTAN ---
POST ANESTHESIA ASSESSMENT - MENTAL STATUS Mental Status: Alert, Oriented - VITAL SIGNS Vital Signs: Last Vital Signs Temp 36 C L 11/19/19 14:38 Pulse 124 H 11/19/19 15:30 Resp 22 H 11/19/19 15:30 BP 113/65 11/19/19 15:30 Pulse Ox 100 11/19/19 15:30 - RESPIRATORY Respiratory Status: Respiratory Rate WNL, Airway Patent, O2 Saturation Stable - CARDIOVASCULAR CV Status: Pulse Rate WNL, Blood Pressure Stable - GASTROINTESTINAL GI Status: No Symptoms - PAIN Pain Score: 0 - POST OP HYDRATION Hydration Status: Adequate & Stable - OBSERVATIONS Free Text/Narrative:: No anesthesia problems
--- NOTE | 2019-11-19 16:44 | OR ---
SURGEON: Jer Galarza MD DATE OF PROCEDURE: PREOPERATIVE DIAGNOSES: Intrauterine at 27 plus 4 weeks in active labor. Breech presentation with the protruding amniotic fluid bag. POSTOPERATIVE DIAGNOSES: Intrauterine at 27 plus 4 weeks in active labor. Breech presentation with the protruding amniotic fluid bag. OPERATION PERFORMED: Primary low transverse section with removal of Becker cerclage. PRIMARY SURGEON: Jer Galarza MD VOICE AND DATA TECHNICIAN: Ernestina Marie, certified nurse tip scourer. ANESTHESIA: Spinal, Adore Cerrato and Dr. Dowell ESTIMATED BLOOD LOSS: 650 mL. COMPLICATIONS: None. INDICATIONS FOR SURGERY: This patient is 29. She is nulliparous. Originally, her problem started at 23 weeks when she had funneling of her cervix with a protruding amniotic fluid. At that time, I did a Becker cerclage and placed the patient on strict bedrest, and we started her on progesterone weekly. We were able to hold her until 27 plus 4 now. Today, she presented into Labor and Delivery in active labor with lower abdominal pain and cramping and regular contractions. Speculum examination showed that the cervix was almost 80% to 90% effaced and it was dilated 3 cm and amniotic fluid membrane was seen and bulging through the os. She is breech presentation and the cervix was holding by the Becker cerclage. Because of the patient's unstable lie and unstable presentation, the decision was made to do a primary low transverse section. We will contact the team and have them come to [place] to resuscitate the baby, and we will do her section as soon as the team has arrived. PROCEDURE IN DETAIL: The patient was brought to the OR, properly identified, and after adequate level of spinal anesthesia, the patient was prepped and draped in sterile fashion as usual. A low transverse Pfannenstiel skin incision done. Frank fascia and rectus fascia were opened in direction of the incision. The 2 recti muscles were , peritoneal cavity was entered, and low transverse uterine incision was done. The fetus was in a breech presentation, delivered without any problem, handed to the resuscitating team. score and weight are not available at this time. The placenta delivered spontaneous, complete, and intact and sent for histopathology. Repair of the lower uterine segment was done with 2-0 Vicryl continuous interlocking in 2 layers. Reperitonealization done with 3-0 Vicryl continuous and then the peritoneal cavity evacuated completely from all blood and blood clot. Then, the peritoneal cavity closed with 3-0 Vicryl continuous. The rectus fascia closed with #1 PDS continuous. Frank fascia with 3-0 Vicryl continuous. The skin closed with 3-0 on a Justin needle in a subcuticular fashion and Dermabond. After closing the skin, the patient was placed in lithotomy position and speculum was placed in the vagina and the cerclage was identified and cut and removed without any problem. Instrument and sponge count was correct. The patient tolerated the procedure well, went to recovery room in stable general condition. NINA / KRISTIN /[id number] MTDAmber
[2019-11-19] MEDS: Docusate Sodium 100 MG Cap PO SCH (21:37)
[2019-11-20] MEDS: Ketorolac 30 MG/ML SDV IVPUSH SCH ×2 (04:07→09:51)
--- NOTE | 2019-11-20 05:48 | PCM48HPAN ---
Post Anesthesia Note - EVALUATION WITHIN 48HRS OF ANESTHETIC Vital Signs in Normal Range: Yes Patient Participated in Evaluation: Yes Respiratory Function Stable: Yes Airway Patent: Yes Cardiovascular Function Stable: Yes Hydration Status Stable: Yes Pain Control Satisfactory: Yes Nausea and Vomiting Control Satisfactory: Yes Mental Status Recovered: Yes Vital Signs: Last Vital Signs Temp 99.3 F 11/20/19 04:28 Pulse 94 11/20/19 05:00 Resp 16 11/20/19 05:00 BP 119/74 11/20/19 04:00 Pulse Ox 100 11/20/19 05:00 - COMMENTS/OBSERVATIONS Free Text/Narrative:: Pt stable. VSS. No anesthesia complications
--- NOTE | 2019-11-20 07:39 | PCM.PNPP ---
- General Info Date of Service: 11/20/19 Admission Dx/Problem (Free Text): Patient Status Order with Admit Dx/Problem 11/19/19 04:53 Patient Status [ADT] Routine 11/19/19 09:38 Patient Status [ADT] Routine Patient Status [ADT] Routine Admission Diagnosis/Problem Admission Diagnosis/Problem Functional Status: Reports: Pain Controlled, Tolerating Diet - Review of Systems General: Reports: No Symptoms HEENT: Reports: No Symptoms Pulmonary: Reports: No Symptoms Cardiovascular: Reports: No Symptoms Gastrointestinal: Reports: No Symptoms Genitourinary: Reports: No Symptoms Musculoskeletal: Reports: No Symptoms Skin: Reports: No Symptoms Neurological: Reports: No Symptoms Psychiatric: Reports: No Symptoms - Patient Data Vital Signs - Most Recent: Last Vital Signs Temp 37.4 C 11/20/19 04:28 Pulse 84 11/20/19 06:00 Resp 17 11/20/19 06:00 BP 117/72 11/20/19 06:00 Pulse Ox 99 11/20/19 06:00 Weight - Most Recent: 73.028 kg I&O - Last 24 Hours: Intake & Output 11/19/19 11/20/19 11/20/19 22:59 06:59 14:59 Intake Total 2000 Output Total 50 375 Balance 1950 -375 Lab Results - Last 24 Hours: Laboratory Results - last 24 hr 11/19/19 11/19/19 11/19/19 Range/Units 09:50 09:50 18:52 WBC 16.94 H (4.0-11.0) K/uL RBC 3.74 L (4.30-5.90) M/uL Hgb 11.0 L (12.0-16.0) g/dL Hct 34.8 L (36.0-46.0) % MCV 93.0 (80.0-98.0) fL MCH 29.4 (27.0-32.0) pg MCHC 31.6 (31.0-37.0) g/dL RDW Std Deviation 55.5 (28.0-62.0) fl RDW Coeff of Hermelindo 16 H (11.0-15.0) % Plt Count 264 (150-400) K/uL MPV 10.40 (7.40-12.00) fL Neutrophils % (Manual) (48.0-80.0) % Band Neutrophils % % Lymphocytes % (Manual) (16.0-40.0) % Monocytes % (Manual) (0.0-15.0) % Nucleated RBC % 0.0 /100WBC Absolute Seg Neuts (1.4-5.7) Band Neutrophils # Lymphocytes # (Manual) (0.6-2.4) Monocytes # (Manual) (0.0-0.8) Nucleated RBCs # 0 K/uL INR 0.96 APTT 28.7 (18.6-31.3) SEC Blood Type A POSITIVE Antibody Screen NEGATIVE 11/19/19 11/20/19 Range/Units 18:52 05:00 WBC 20.57 H (4.0-11.0) K/uL RBC 3.17 L (4.30-5.90) M/uL Hgb 9.2 L 8.0 L (12.0-16.0) g/dL Hct 29.7 L 24.9 L (36.0-46.0) % MCV 93.7 (80.0-98.0) fL MCH 29.0 (27.0-32.0) pg MCHC 31.0 (31.0-37.0) g/dL RDW Std Deviation 56.9 (28.0-62.0) fl RDW Coeff of Hermel[place] 17 H (11.0-15.0) % Plt Count 255 (150-400) K/uL MPV 10.00 (7.40-12.00) fL Neutrophils % (Manual) 79 (48.0-80.0) % Band Neutrophils % 14 % Lymphocytes % (Manual) 4 L (16.0-40.0) % Monocytes % (Manual) 3 (0.0-15.0) % Nucleated RBC % 0.0 /100WBC Absolute Seg Neuts 16.3 H (1.4-5.7) Band Neutrophils # 2.9 Lymphocytes # (Manual) 0.8 (0.6-2.4) Monocytes # (Manual) 0.6 (0.0-0.8) Nucleated RBCs # K/uL INR APTT (18.6-31.3) SEC Blood Type Antibody Screen Med Orders - Current: Current Medications Acetaminophen (Tylenol Extra Strength) 500 mg PO Q4H PRN PRN Reason: Pain Acetaminophen (Tylenol Extra Strength) 1,000 mg PO Q4H PRN PRN Reason: Pain Bisacodyl (Dulcolax) 10 mg RECTAL ONETIME PRN PRN Reason: Constipation Diphenhydramine HCl (Benadryl) 25 mg IVPUSH Q4H PRN PRN Reason: Itching Stop: 11/20/19 14:33 Diphenhydramine HCl (Benadryl) 25 mg IVPUSH Q6H PRN PRN Reason: Itching or Nausea Docusate Sodium (Colace) 100 mg PO BID [facility] Last Admin: 11/19/19 21:37 Dose: 100 mg Emollient Ointment (Lansinoh Hpa) 0 gm TOP ASDIRECTED PRN PRN Reason: Sore Nipples Fentanyl (Sublimaze) 50 mcg IVPUSH Q1H PRN PRN Reason: Pain (severe 7-10) Lactated Ringer's (Ringers, Lactated) 1,000 mls @ 999 mls/hr IV .BOLUS [facility] Last Admin: 11/19/19 09:40 Dose: 999 mls/hr Lactated Ringer's (Ringers, Lactated) 1,000 mls @ 500 mls/hr IV BOLUS [facility] Oxytocin/Sodium Chloride (Oxytocin 30 Unit/500 Ml-Ns) 30 unit in 500 mls @ 250 mls/hr IV TITRATE [facility] Lactated Ringer's (Ringers, Lactated) 1,000 mls @ 125 mls/hr IV ASDIRECTED [facility] Last Admin: 11/19/19 23:45 Dose: 125 mls/hr Ibuprofen (Motrin) 800 mg PO Q8H PRN PRN Reason: mild pain or fever Ketorolac Tromethamine (Toradol) 30 mg IVPUSH Q6H [facility] Stop: 11/20/19 16:01 Last Admin: 11/20/19 04:07 Dose: 30 mg Methylergonovine Maleate (Methergine) 0.2 mg IM ONETIME PRN PRN Reason: Excessive Vaginal Bleeding Misoprostol (Cytotec) 1,000 mcg RECTAL ONETIME PRN PRN Reason: excessive bleeding Nalbuphine HCl (Nubain) 5 mg IVPUSH ASDIRECTED PRN PRN Reason: Itching Last Admin: 11/19/19 17:35 Dose: 5 mg Naloxone HCl (Narcan) 0.1 mg IVPUSH ONETIME PRN PRN Reason: Respiratory Depression Stop: 11/20/19 14:33 Ondansetron HCl (Zofran) 4 mg IVPUSH Q6H PRN PRN Reason: Nausea Ondansetron HCl (Zofran) 4 mg IVPUSH Q4H PRN PRN Reason: Nausea/Vomiting Oxycodone HCl (Oxycodone) 5 mg PO Q2H PRN PRN Reason: Pain Oxycodone/Acetaminophen (Percocet 325-5 Mg) 2 tab PO Q6H PRN PRN Reason: Pain (moderate 4-6) Oxycodone/Acetaminophen (Percocet 325-5 Mg) 1 tab PO Q4H PRN PRN Reason: Pain (moderate 4-6) Oxycodone/Acetaminophen (Percocet 325-5 Mg) 2 tab PO Q4H PRN PRN Reason: Pain (moderate 4-6) Oxytocin (Pitocin) 10 unit IM ASDIRECTED PRN PRN Reason: Excessive Vaginal Bleeding Sodium Chloride (Saline Flush) 10 ml FLUSH ASDIRECTED PRN PRN Reason: Keep Vein Open Sodium Chloride (Saline Flush) 2.5 ml FLUSH ASDIRECTED PRN PRN Reason: Keep Vein Open Sodium Chloride (Normal Saline) 10 ml IV ASDIRECTED PRN PRN Reason: IV Use Sodium Chloride (Saline Flush) 2.5 ml FLUSH ASDIRECTED PRN PRN Reason: Keep Vein Open Sodium Chloride (Normal Saline) 10 ml IV ASDIRECTED PRN PRN Reason: IV Use Sodium Chloride (Saline Flush) 10 ml FLUSH ASDIRECTED PRN PRN Reason: Keep Vein Open Sodium Chloride (Saline Flush) 2.5 ml FLUSH ASDIRECTED PRN PRN Reason: Keep Vein Open Sodium Chloride (Normal Saline) 10 ml IV ASDIRECTED PRN PRN Reason: IV Use Discontinued Medications Benzocaine/Menthol (Dermoplast Pain Relief 20%-0.5% [place]) 78 gm TOP ASDIRECTED PRN PRN Reason: Perineal Comfort Measure Betamethasone Acet/Betameth SodPhos (Celestone Soluspan 6 Mg/Ml) 12 mg IM ONETIME ONE Stop: 11/19/19 09:38 Last Admin: 11/19/19 09:47 Dose: 12 mg Bisacodyl (Dulcolax) 10 mg RECTAL ONETIME PRN PRN Reason: Constipation Butorphanol Tartrate (Stadol) 1 mg IVPUSH Q1H PRN PRN Reason: Pain Carboprost Tromethamine (Hemabate Ds) 250 mcg IM ASDIRECTED PRN PRN Reason: Post Hemorrhage Citric Acid/Sodium Citrate (Bicitra Solution) 30 ml PO ONETIME ONE Stop: 11/19/19 09:39 Last Admin: 11/19/19 16:05 Dose: Not Given Dexamethasone (Dexamethasone) 12 mg IVPUSH ONETIME ONE Stop: 11/19/19 09:31 Docusate Sodium (Colace) 100 mg PO BID PRN PRN Reason: Constipation Emollient Ointment (Lansinoh Hpa) 0 gm TOP ASDIRECTED PRN PRN Reason: Sore Nipples Ephedrine Sulfate (Ephedrine Sulfate) Confirm Administered Dose 50 mg .ROUTE .STK-MED ONE Stop: 11/19/19 13:01 Tranexamic Acid 1,000 mg/ (Sodium Chloride) 110 mls @ 660 mls/hr IV ONETIME PRN PRN Reason: Bleeding Lactated Ringer's (Ringers, Lactated) 1,000 mls @ 150 mls/hr IV ASDIRECTED [facility] Last Admin: 11/19/19 13:00 Dose: 150 mls/hr Oxytocin/Sodium Chloride (Oxytocin 30 Unit/500 Ml-Ns) 30 unit in 500 mls @ 999 mls/hr IV TITRATE [facility] Tranexamic Acid 1,000 mg/ (Sodium Chloride) 110 mls @ 660 mls/hr IV ONETIME PRN PRN Reason: Bleeding Ibuprofen (Motrin) 400 mg PO Q4H PRN PRN Reason: Pain Ibuprofen (Motrin) 800 mg PO Q6H PRN PRN Reason: Pain Ketorolac Tromethamine (Toradol) Confirm Administered Dose 15 mg .ROUTE .STK- MED ONE Stop: 11/19/19 16:10 Lidocaine HCl (Xylocaine 1%) 50 ml INJECT ONETIME PRN PRN Reason: Laceration repair Methylergonovine Maleate (Methergine) 0.2 mg IM ASDIRECTED PRN PRN Reason: Post Hemorrhage Misoprostol (Cytotec) 200 mcg PO ONETIME PRN PRN Reason: Post Hemorrhage Morphine Sulfate (Duramorph Pf) Confirm Administered Dose 10 mg .ROUTE .STK-MED ONE Stop: 11/19/19 13:01 Nalbuphine HCl (Nubain) 10 mg IVPUSH Q1H PRN PRN Reason: Pain (severe 7-10) Octyl Cyanoacrylate (Dermabond Advance) Confirm Administered Dose 1 applic .ROUTE .STK-MED ONE Stop: 11/19/19 14:08 Last Admin: 11/19/19 16:05 Dose: Not Given Ondansetron HCl (Zofran) Confirm Administered Dose 4 mg .ROUTE .STK-MED ONE Stop: 11/19/19 13:01 Oxytocin (Pitocin) Confirm Administered Dose 20 unit .ROUTE .STK-MED ONE Stop: 11/19/19 13:01 Sodium Chloride (Saline Flush) 10 ml FLUSH ASDIRECTED PRN PRN Reason: Keep Vein Open Sterile Water (Sterile Water For Irrigation) 1,000 ml IRR ASDIRECTED PRN PRN Reason: delivery Terbutaline Sulfate (Brethine) 0.25 mg SUBCUT ONETIME ONE Stop: 11/19/19 08:53 Last Admin: 11/19/19 09:35 Dose: 0.25 mg Terbutaline Sulfate (Brethine) 0.25 mg SUBCUT ONETIME ONE Stop: 11/19/19 11:00 Last Admin: 11/19/19 11:01 Dose: 0.25 mg Witch Ayla (Tucks) 1 pad TOP ASDIRECTED PRN PRN Reason: comfort care - Interaction Infant Disposition, : Not Applicable Interaction: Unable to Hold at this Time Feeding: Other (see below) (Encourgaged to pump for baby) Support Person: Significant Other - Recovery Exam Fundal Tone: Firm Fundal Level: 1 Fingerbreadths Above Umbilicus Fundal Placement: Midline Lochia Amount: Scant Lochia Color: Rubra/Red Perineum Description: Intact, Minimal Bruising/Swelling Episiotomy/Laceration: None Bladder Status: Indwelling Catheter in Place Urinary Elimination: Indwelling Catheter - Exam General: Alert, Oriented, Cooperative, No Acute Distress Lungs: Normal Respiratory Effort GI/Abdominal Exam: Soft, Non-Tender Extremities: Normal Range of Motion, Non-Tender Skin: Warm, Dry, Intact Wound/Incisions: Dressing Dry and Intact Neurological: No New Focal Deficit, Normal Speech, Normal Tone, Strength Equal Bilateral, Sensation Intact Psy/Mental Status: Alert, Normal Affect, Normal Mood - Problem List & Annotations (1) NB deliv by , 1,250-1,499 gm, 27-28 completed weeks SNOMED Code(s): 621549619, [id number], [id number], [id number] Code(s): TSD3426 - Status: Acute Priority: High Current Visit: Yes - Problem List Review Problem List Initiated/Reviewed/Updated: Yes - Plan Plan:: Intrauterine 27 weeks +4 history of incompetent cervix she status post cerclage done at 23 weeks today she presented with contraction and lower abdominal pain as speculum examination shows that there cervix is opened about 3 cm with a cerclage was confirmed with the cervical length ultrasound via the vaginal probe the patient is breech presentation with protruding amniotic fluid bag from by the ultrasound is the patient unstable lie the patient will be scheduled for emergency section and we will try to get the team to fly to here for resuscitation PPD#1 A: VSS, AF, dressing dry/intact. Stable P: encouraged up at bs, pumping breast milk for baby. Disc discharge plan
[2019-11-20] MEDS: Lactated Ringers 1,000 ML IV SCH (07:41)
[2019-11-20] MEDS: Docusate Sodium 100 MG Cap PO SCH ×2 (09:00→20:46)
[2019-11-20] MEDS ORDERED: Ibuprofen 800 MG Tab PO PRN (22:00)
[2019-11-21] MEDS: Docusate Sodium 100 MG Cap PO SCH (09:03)
--- NOTE | 2019-11-21 09:11 | PCM.DCSUM1 ---
Discharge Summary - Hospital Course Diagnosis: Stroke: No - Discharge Data Discharge Date: 11/21/19 Discharge Disposition: Home, Self-Care 01 Condition: Good - Referral to Home Health Primary Care Physician: PCP None - Patient Summary/Data Operative Procedure(s) Performed: Primary C/section. removal of [place] Cereclage. - Patient Instructions Diet: Usual Diet as Tolerated Activity: As Tolerated Driving: Do Not Drive Showering/Bathing: May Shower - Discharge Plan Home Medications: Home Meds Ondansetron [Zofran] 4 mg PO ASDIRECTED PRN 10/13/19 [History] Promethazine [Phenergan] 25 mg PO ASDIRECTED PRN 10/13/19 [History] Ferrous Sulfate [Iron] 325 mg PO DAILY 11/19/19 [History] Referrals: [facility] [Outside] Jer Galarza MD [Physician] - (1 week- November 25@ 1:30pm w/ Dr. Galarza week- December 30@1:30pm w/ Dr. Galarza) - Discharge Summary/Plan Comment DC Time >30 min.: Yes - General Info Date of Service: 11/21/19 Functional Status: Reports: Pain Controlled - Review of Systems General: Reports: No Symptoms HEENT: Reports: No Symptoms Pulmonary: Reports: No Symptoms Cardiovascular: Reports: No Symptoms Gastrointestinal: Reports: No Symptoms Genitourinary: Reports: No Symptoms Musculoskeletal: Reports: No Symptoms Skin: Reports: No Symptoms Neurological: Reports: No Symptoms Psychiatric: Reports: No Symptoms - Patient Data Vitals - Most Recent: Last Vital Signs Temp 37.1 C 11/21/19 08:22 Pulse 88 11/21/19 08:22 Resp 18 11/21/19 08:22 BP 109/62 11/21/19 08:22 Pulse Ox 100 11/21/19 08:22 Weight - Most Recent: 73.028 kg I&O - Last 24 hours: Intake & Output 11/20/19 11/21/19 11/21/19 22:59 06:59 14:59 Intake Total 980 Output Total 600 Balance 380 Med Orders - Current: Current Medications Acetaminophen (Tylenol Extra Strength) 500 mg PO Q4H PRN PRN Reason: Pain Acetaminophen (Tylenol Extra Strength) 1,000 mg PO Q4H PRN PRN Reason: Pain Bisacodyl (Dulcolax) 10 mg RECTAL ONETIME PRN PRN Reason: Constipation Diphenhydramine HCl (Benadryl) 25 mg IVPUSH Q6H PRN PRN Reason: Itching or Nausea Docusate Sodium (Colace) 100 mg PO BID [facility] Last Admin: 11/21/19 09:03 Dose: 100 mg Emollient Ointment (Lansinoh Hpa) 0 gm TOP ASDIRECTED PRN PRN Reason: Sore Nipples Fentanyl (Sublimaze) 50 mcg IVPUSH Q1H PRN PRN Reason: Pain (severe 7-10) Lactated Ringer's (Ringers, Lactated) 1,000 mls @ 999 mls/hr IV .BOLUS [facility] Last Admin: 11/19/19 09:40 Dose: 999 mls/hr Lactated Ringer's (Ringers, Lactated) 1,000 mls @ 500 mls/hr IV BOLUS [facility] Oxytocin/Sodium Chloride (Oxytocin 30 Unit/500 Ml-Ns) 30 unit in 500 mls @ 250 mls/hr IV TITRATE [facility] Lactated Ringer's (Ringers, Lactated) 1,000 mls @ 125 mls/hr IV ASDIRECTED [facility] Last Admin: 11/20/19 07:41 Dose: 125 mls/hr Ibuprofen (Motrin) 800 mg PO Q8H PRN PRN Reason: mild pain or fever Methylergonovine Maleate (Methergine) 0.2 mg IM ONETIME PRN PRN Reason: Excessive Vaginal Bleeding Misoprostol (Cytotec) 1,000 mcg RECTAL ONETIME PRN PRN Reason: excessive bleeding Nalbuphine HCl (Nubain) 5 mg IVPUSH ASDIRECTED PRN PRN Reason: Itching Last Admin: 11/19/19 17:35 Dose: 5 mg Ondansetron HCl (Zofran) 4 mg IVPUSH Q6H PRN PRN Reason: Nausea Ondansetron HCl (Zofran) 4 mg IVPUSH Q4H PRN PRN Reason: Nausea/Vomiting Oxycodone HCl (Oxycodone) 5 mg PO Q2H PRN PRN Reason: Pain Oxycodone/Acetaminophen (Percocet 325-5 Mg) 2 tab PO Q6H PRN PRN Reason: Pain (moderate 4-6) Last Admin: 11/20/19 20:45 Dose: 2 tab Oxycodone/Acetaminophen (Percocet 325-5 Mg) 1 tab PO Q4H PRN PRN Reason: Pain (moderate 4-6) Oxycodone/Acetaminophen (Percocet 325-5 Mg) 2 tab PO Q4H PRN PRN Reason: Pain (moderate 4-6) Last Admin: 11/21/19 04:42 Dose: 2 tab Oxytocin (Pitocin) 10 unit IM ASDIRECTED PRN PRN Reason: Excessive Vaginal Bleeding Sodium Chloride (Saline Flush) 10 ml FLUSH ASDIRECTED PRN PRN Reason: Keep Vein Open Sodium Chloride (Saline Flush) 2.5 ml FLUSH ASDIRECTED PRN PRN Reason: Keep Vein Open Sodium Chloride (Normal Saline) 10 ml IV ASDIRECTED PRN PRN Reason: IV Use Sodium Chloride (Saline Flush) 2.5 ml FLUSH ASDIRECTED PRN PRN Reason: Keep Vein Open Sodium Chloride (Normal Saline) 10 ml IV ASDIRECTED PRN PRN Reason: IV Use Sodium Chloride (Saline Flush) 10 ml FLUSH ASDIRECTED PRN PRN Reason: Keep Vein Open Sodium Chloride (Saline Flush) 2.5 ml FLUSH ASDIRECTED PRN PRN Reason: Keep Vein Open Sodium Chloride (Normal Saline) 10 ml IV ASDIRECTED PRN PRN Reason: IV Use Discontinued Medications Benzocaine/Menthol (Dermoplast Pain Relief 20%-0.5% [place]) 78 gm TOP ASDIRECTED PRN PRN Reason: Perineal Comfort Measure Betamethasone Acet/Betameth SodPhos (Celestone Soluspan 6 Mg/Ml) 12 mg IM ONETIME ONE Stop: 11/19/19 09:38 Last Admin: 11/19/19 09:47 Dose: 12 mg Bisacodyl (Dulcolax) 10 mg RECTAL ONETIME PRN PRN Reason: Constipation Butorphanol Tartrate (Stadol) 1 mg IVPUSH Q1H PRN PRN Reason: Pain Carboprost Tromethamine (Hemabate Ds) 250 mcg IM ASDIRECTED PRN PRN Reason: Post Hemorrhage Citric Acid/Sodium Citrate (Bicitra Solution) 30 ml PO ONETIME ONE Stop: 11/19/19 09:39 Last Admin: 11/19/19 16:05 Dose: Not Given Dexamethasone (Dexamethasone) 12 mg IVPUSH ONETIME ONE Stop: 11/19/19 09:31 Diphenhydramine HCl (Benadryl) 25 mg IVPUSH Q4H PRN PRN Reason: Itching Stop: 11/20/19 14:33 Docusate Sodium (Colace) 100 mg PO BID PRN PRN Reason: Constipation Emollient Ointment (Lansinoh Hpa) 0 gm TOP ASDIRECTED PRN PRN Reason: Sore Nipples Ephedrine Sulfate (Ephedrine Sulfate) Confirm Administered Dose 50 mg .ROUTE .STK-MED ONE Stop: 11/19/19 13:01 Tranexamic Acid 1,000 mg/ (Sodium Chloride) 110 mls @ 660 mls/hr IV ONETIME PRN PRN Reason: Bleeding Lactated Ringer's (Ringers, Lactated) 1,000 mls @ 150 mls/hr IV ASDIRECTED [facility] Last Admin: 11/19/19 13:00 Dose: 150 mls/hr Oxytocin/Sodium Chloride (Oxytocin 30 Unit/500 Ml-Ns) 30 unit in 500 mls @ 999 mls/hr IV TITRATE [facility] Tranexamic Acid 1,000 mg/ (Sodium Chloride) 110 mls @ 660 mls/hr IV ONETIME PRN PRN Reason: Bleeding Ibuprofen (Motrin) 400 mg PO Q4H PRN PRN Reason: Pain Ibuprofen (Motrin) 800 mg PO Q6H PRN PRN Reason: Pain Ketorolac Tromethamine (Toradol) 30 mg IVPUSH Q6H [facility] Stop: 11/20/19 16:01 Last Admin: 11/20/19 09:51 Dose: 30 mg Ketorolac Tromethamine (Toradol) Confirm Administered Dose 15 mg .ROUTE .STK- MED ONE Stop: 11/19/19 16:10 Lidocaine HCl (Xylocaine 1%) 50 ml INJECT ONETIME PRN PRN Reason: Laceration repair Methylergonovine Maleate (Methergine) 0.2 mg IM ASDIRECTED PRN PRN Reason: Post Hemorrhage Misoprostol (Cytotec) 200 mcg PO ONETIME PRN PRN Reason: Post Hemorrhage Morphine Sulfate (Duramorph Pf) Confirm Administered Dose 10 mg .ROUTE .STK-MED ONE Stop: 11/19/19 13:01 Nalbuphine HCl (Nubain) 10 mg IVPUSH Q1H PRN PRN Reason: Pain (severe 7-10) Naloxone HCl (Narcan) 0.1 mg IVPUSH ONETIME PRN PRN Reason: Respiratory Depression Stop: 11/20/19 14:33 Octyl Cyanoacrylate (Dermabond Advance) Confirm Administered Dose 1 applic .ROUTE .STK-MED ONE Stop: 11/19/19 14:08 Last Admin: 11/19/19 16:05 Dose: Not Given Ondansetron HCl (Zofran) Confirm Administered Dose 4 mg .ROUTE .STK-MED ONE Stop: 11/19/19 13:01 Oxytocin (Pitocin) Confirm Administered Dose 20 unit .ROUTE .STK-MED ONE Stop: 11/19/19 13:01 Sodium Chloride (Saline Flush) 10 ml FLUSH ASDIRECTED PRN PRN Reason: Keep Vein Open Sterile Water (Sterile Water For Irrigation) 1,000 ml IRR ASDIRECTED PRN PRN Reason: delivery Terbutaline Sulfate (Brethine) 0.25 mg SUBCUT ONETIME ONE Stop: 11/19/19 08:53 Last Admin: 11/19/19 09:35 Dose: 0.25 mg Terbutaline Sulfate (Brethine) 0.25 mg SUBCUT ONETIME ONE Stop: 11/19/19 11:00 Last Admin: 11/19/19 11:01 Dose: 0.25 mg Witch Ayla (Tucks) 1 pad TOP ASDIRECTED PRN PRN Reason: comfort care - Exam General: Reports: Alert, Oriented HEENT: Reports: Pupils Equal, Pupils Reactive, EOMI, Mucous Membr. Moist/[place] Neck: Reports: Supple Lungs: Reports: Clear to Auscultation, Normal Respiratory Effort Cardiovascular: Reports: Regular Rate, Regular Rhythm GI/Abdominal Exam: Normal Bowel Sounds, Soft, Non-Tender, No Organomegaly, No Distention, No Abnormal Bruit, No Mass, Pelvis Stable (Female) Exam: Normal External Exam, Normal Speculum Exam, Normal Bimanual Exam Rectal (Female) Exam: Normal Exam, Normal Rectal Tone Back Exam: Reports: Normal Inspection, Full Range of Motion Extremities: Normal Inspection, Normal Range of Motion, Non-Tender, No Pedal Edema, Normal Capillary Refill Skin: Reports: Warm, Dry, Intact Wound/Incisions: Reports: Healing Well Neurological: Reports: No New Focal Deficit Psy/Mental Status: Reports: Alert, Normal Affect, Normal Mood
== END 2019-11-21 13:31 | disposition home or self-care (01) | DRG 786 ==
LOC: MW.OBCHECK 04:22 → MW.OB 04:23 → MW.OBCHECK 09:38 → MW.OB 09:38
PROVIDERS: ADMIT Obstetrics & Gynecology; ATTEND Obstetrics & Gynecology
PROC: 10D00Z1 Extraction of Products of Conception, Low, Open Approach (ICD-10-PCS; principal; 2019-11-19)
PROC: 0UCC0ZZ Extirpation of Matter from Cervix, Open Approach (ICD-10-PCS; 2019-11-19)
DX: O32.1XX0 Maternal care for breech presentation, not applicable or unspecified (principal); O34.32 Maternal care for cervical incompetence, second trimester; O60.12X0 Preterm labor second trimester with preterm delivery second trimester, not applicable or unspecified; Z3A.27 27 weeks gestation of pregnancy; Z37.0 Single live birth
CPT/HCPCS: 36415; 59025; 76817; 76817-26; 81003; 85007; 85014; 85018; 85027; 85610; 85730; 86592; 86593; 86850; 86900; 86901; 88307; A9270-GY; J0702; J1885; J2270; J2300; J2405; J2590; J3105; J7120

== ENCOUNTER 2021-03-24 09:20 | Day surgery (SDC) | payer BC, OTHER ==
[~2021-03-24 09:20] MED LIST: Albuterol 0.083% 2.5 MG/3 ML Neb Soln NEB PRN; Chloroprocaine 10 MG/ML 5 ML Amp ONE; HYDROmorphone 1 MG/ML Syringe IVPUSH PRN; Lactated Ringers 1,000 ML IV SCH; Metoclopramide 10 MG/2 ML SDV IVPUSH PRN; Morphine 2 MG/ML SYRINGE IVPUSH PRN; Naloxone 0.4 MG/ML Syringe IVPUSH PRN; Ondansetron 4 MG/2 ML SDV IVPUSH PRN; fentaNYL 100 MCG/2 ML SDV IVPUSH PRN
--- NOTE | 2021-03-24 09:38 | PCM.PREANE ---
Preanesthetic Assessment - Anesthesia/Transfusion/Family Hx Anesthesia History: Prior Anesthesia Without Reaction Transfusion History: No Prior Transfusion(s) Type of Transfusion Reactions: Reports: Unknown Intubation History: Unknown - Review of Systems General: No Symptoms Pulmonary: No Symptoms Cardiovascular: No Symptoms Gastrointestinal: No Symptoms Neurological: No Symptoms Other: Reports: None - Physical Assessment NPO Status Date: 03/24/21 NPO Status Time: 00:00 Height: 5 ft 5 in Weight: 181 lb ASA Class: 2 Mental Status: Alert & Oriented x3 Airway Class: Mallampati = 2 Dentition: Reports: Normal Dentition Thyro-Mental Finger Breadths: 3 Mouth Opening Finger Breadths: 3 ROM/Head Extension: Full Lungs: Clear to Auscultation, Normal Respiratory Effort Cardiovascular: Regular Rate, Regular Rhythm - Allergies Allergies/Adverse Reactions: Allergies Allergy/AdvReac Type Severity Reaction Status Date / Time No Known Allergies Allergy Verified 03/18/21 13:21 - Acknowledgements Anesthesia Type Planned: Spinal Pt an Appropriate Candidate for the Planned Anesthesia: Yes Alternatives and Risks of Anesthesia Discussed w Pt/Guardian: Yes Pt/Guardian Understands and Agrees with Anesthesia Plan: Yes PreAnesthesia Questionnaire HEENT History: Reports: None Cardiovascular History: Reports: None Respiratory History: Reports: None Gastrointestinal History: Reports: Other (See Below) Other Gastrointestinal History: N&V with Genitourinary History: Reports: None Other Genitourinary History: Incompetent cervix [employer] History: Reports: Musculoskeletal History: Reports: None Neurological History: Reports: None Psychiatric History: Reports: None Endocrine/Metabolic History: Reports: None Hematologic History: Reports: None Immunologic History: Reports: None Oncologic (Cancer) History: Reports: None Dermatologic History: Reports: None - Infectious Disease History Infectious Disease History: Reports: None - Past Surgical History Head Surgeries/Procedures: Reports: None HEENT Surgical History: Reports: None Cardiovascular Surgical History: Reports: None Respiratory Surgical History: Reports: None GI Surgical History: Reports: None Female Surgical History: Reports: Section, Other (See Below) Other Female Surgeries/Procedures: cervical cerclage Endocrine Surgical History: Reports: None Neurological Surgical History: Reports: None Musculoskeletal Surgical History: Reports: None Oncologic Surgical History: Reports: None Dermatological Surgical History: Reports: None - SUBSTANCE USE Tobacco Use Status *Q: Never Tobacco User Recreational Drug Use History: No - HOME MEDS Home Medications: Home Meds Promethazine [Phenergan] 25 mg PO BID PRN 10/13/19 [History] Folic Acid 0.4 mg PO DAILY 03/18/21 [History] Pnv No.95/Ferrous Fum/Folic AC [ Caplet] 1 cap PO DAILY 03/18/21 [History] - CURRENT (IN HOUSE) MEDS Current Meds: Current Medications Albuterol (Albuterol 0.083% 2.5 Mg/3 Ml Neb Soln) 2.5 mg NEB ONETIME PRN PRN Reason: Wheezing Droperidol (Droperidol 5 Mg/2 Ml Sdv) 0.625 mg IVPUSH ONETIME PRN PRN Reason: Nausea/Vomiting Fentanyl (Fentanyl 100 Mcg/2 Ml Sdv) 50 mcg IVPUSH Q5M PRN PRN Reason: Pain (mild 1-3) Hydromorphone HCl (Hydromorphone 1 Mg/Ml Syringe) 1 mg IVPUSH Q10M PRN PRN Reason: Pain (moderate 4-6) Lactated Ringer's (Ringers, Lactated) 1,000 mls @ 100 mls/hr IV ASDIRECTED [facility]AS[facility] Metoclopramide HCl (Metoclopramide 10 Mg/2 Ml Sdv) 10 mg IVPUSH ONETIME PRN PRN Reason: Nausea/Vomiting Morphine Sulfate (Morphine 2 Mg/Ml Syringe) 2 mg IVPUSH Q10M PRN PRN Reason: Pain (severe 7-10) Naloxone HCl (Naloxone 0.4 Mg/Ml Syringe) 0.1 mg IVPUSH ASDIRECTED PRN PRN Reason: Respiratory Depression Ondansetron HCl (Ondansetron 4 Mg/2 Ml Sdv) 4 mg IVPUSH ONETIME PRN PRN Reason: Nausea/Vomiting Discontinued Medications Chloroprocaine HCl (Chloroprocaine 10 Mg/Ml 5 Ml Amp) Confirm Administered Dose 5 ml .ROUTE .STK-MED ONE Stop: 03/24/21 08:32
[2021-03-24] MEDS ORDERED: Propofol 200 MG/20 ML SDV ONE (10:08)
--- NOTE | 2021-03-24 10:57 | PCM.DCSUM1 ---
Discharge Summary - Hospital Course Diagnosis: Stroke: No - Discharge Data Discharge Date: 03/24/21 Discharge Disposition: Home, Self-Care 01 Condition: Good - Referral to Home Health Primary Care Physician: Jer Galarza MD - Patient Summary/Data Operative Procedure(s) Performed: Becker Cerclage - Patient Instructions Diet: Usual Diet as Tolerated Activity: As Tolerated Driving: Do Not Drive Showering/Bathing: May Shower Notify Provider of: Fever, Increased Pain, Swelling and Redness, Drainage, Nausea and/or Vomiting - Discharge Plan Home Medications: Home Meds Promethazine [Phenergan] 25 mg PO BID PRN 10/13/19 [History] Folic Acid 0.4 mg PO DAILY 03/18/21 [History] Pnv No.95/Ferrous Fum/Folic AC [ Caplet] 1 cap PO DAILY 03/18/21 [History] - Discharge Summary/Plan Comment DC Time >30 min.: Yes - General Info Date of Service: 03/24/21 Functional Status: Reports: Pain Controlled - Review of Systems General: Reports: No Symptoms HEENT: Reports: No Symptoms Pulmonary: Reports: No Symptoms Cardiovascular: Reports: No Symptoms Gastrointestinal: Reports: No Symptoms Genitourinary: Reports: No Symptoms Musculoskeletal: Reports: No Symptoms Skin: Reports: No Symptoms Neurological: Reports: No Symptoms Psychiatric: Reports: No Symptoms - Patient Data Vitals - Most Recent: Last Vital Signs Temp 36.4 C 03/24/21 09:30 Pulse 82 03/24/21 09:30 Resp 15 03/24/21 09:30 BP 123/73 03/24/21 09:30 Pulse Ox 100 03/24/21 09:30 Weight - Most Recent: 82.1 kg Med Orders - Current: Current Medications Albuterol (Albuterol 0.083% 2.5 Mg/3 Ml Neb Soln) 2.5 mg NEB ONETIME PRN PRN Reason: Wheezing Droperidol (Droperidol 5 Mg/2 Ml Sdv) 0.625 mg IVPUSH ONETIME PRN PRN Reason: Nausea/Vomiting Fentanyl (Fentanyl 100 Mcg/2 Ml Sdv) 50 mcg IVPUSH Q5M PRN PRN Reason: Pain (mild 1-3) Hydromorphone HCl (Hydromorphone 1 Mg/Ml Syringe) 1 mg IVPUSH Q10M PRN PRN Reason: Pain (moderate 4-6) Lactated Ringer's (Ringers, Lactated) 1,000 mls @ 100 mls/hr IV ASDIRECTED JASMYNE Last Admin: 03/24/21 09:50 Dose: 100 mls/hr Documented by: Metoclopramide HCl (Metoclopramide 10 Mg/2 Ml Sdv) 10 mg IVPUSH ONETIME PRN PRN Reason: Nausea/Vomiting Morphine Sulfate (Morphine 2 Mg/Ml Syringe) 2 mg IVPUSH Q10M PRN PRN Reason: Pain (severe 7-10) Naloxone HCl (Naloxone 0.4 Mg/Ml Syringe) 0.1 mg IVPUSH ASDIRECTED PRN PRN Reason: Respiratory Depression Ondansetron HCl (Ondansetron 4 Mg/2 Ml Sdv) 4 mg IVPUSH ONETIME PRN PRN Reason: Nausea/Vomiting Discontinued Medications Chloroprocaine HCl (Chloroprocaine 10 Mg/Ml 5 Ml Amp) Confirm Administered Dose 5 ml .ROUTE .STK-MED ONE Stop: 03/24/21 08:32 Acetaminophen (Ofirmev 1000 Mg/100 Ml) Confirm Administered Dose 100 mls @ as directed .ROUTE .STK-MED ONE Stop: 03/24/21 10:09 Lidocaine HCl (Lidocaine 1% 5 Ml Sdv) Confirm Administered Dose 5 ml .ROUTE .STK-MED ONE Stop: 03/24/21 10:10 Propofol (Propofol 200 Mg/20 Ml Sdv) Confirm Administered Dose 200 mg .ROUTE .STK-MED ONE Stop: 03/24/21 10:09 - Exam General: Reports: Alert, Oriented HEENT: Reports: Pupils Equal, Pupils Reactive, EOMI, Mucous Membr. Moist/[place] Neck: Reports: Supple Lungs: Reports: Clear to Auscultation, Normal Respiratory Effort Cardiovascular: Reports: Regular Rate, Regular Rhythm GI/Abdominal Exam: Normal Bowel Sounds, Soft, Non-Tender, No Organomegaly, No Distention, No Abnormal Bruit, No Mass, Pelvis Stable (Female) Exam: Normal External Exam, Normal Speculum Exam, Normal Bimanual Exam Rectal (Female) Exam: Normal Exam, Normal Rectal Tone Back Exam: Reports: Normal Inspection, Full Range of Motion Extremities: Normal Inspection, Normal Range of Motion, Non-Tender, No Pedal Edema, Normal Capillary Refill Skin: Reports: Warm, Dry, Intact Wound/Incisions: Reports: Healing Well Neurological: Reports: No New Focal Deficit Psy/Mental Status: Reports: Alert, Normal Affect, Normal Mood
--- NOTE | 2021-03-24 10:57 | PCM.OPNOTE ---
- General Post-Op/Procedure Note Date of Surgery/Procedure: 03/24/21 Operative Procedure(s): Becker Cerclage Pre Op Diagnosis: [id number] Cervical incomptance Post-Op Diagnosis: Same Anesthesia Technique: Spinal Primary Surgeon: Jer Galarza EBL in mLs: 50 Complications: None Condition: Good
--- NOTE | 2021-03-24 11:39 | PCM.POSTAN ---
POST ANESTHESIA ASSESSMENT - MENTAL STATUS Mental Status: Alert, Oriented - VITAL SIGNS Vital Signs: Last Vital Signs Temp 97.5 F 03/24/21 10:53 Pulse 73 03/24/21 11:04 Resp 14 03/24/21 11:04 BP 116/66 03/24/21 11:04 Pulse Ox 100 03/24/21 11:04 - RESPIRATORY Respiratory Status: Respiratory Rate WNL, Airway Patent, O2 Saturation Stable - CARDIOVASCULAR CV Status: Pulse Rate WNL, Blood Pressure Stable - GASTROINTESTINAL GI Status: No Symptoms - POST OP HYDRATION Hydration Status: Adequate & Stable
--- NOTE | 2021-03-24 11:40 | PCM48HPAN ---
Post Anesthesia Note - EVALUATION WITHIN 48HRS OF ANESTHETIC Vital Signs in Normal Range: Yes Patient Participated in Evaluation: Yes Respiratory Function Stable: Yes Airway Patent: Yes Cardiovascular Function Stable: Yes Hydration Status Stable: Yes Pain Control Satisfactory: Yes Nausea and Vomiting Control Satisfactory: Yes Mental Status Recovered: Yes Vital Signs: Last Vital Signs Temp 97.5 F 03/24/21 10:53 Pulse 73 03/24/21 11:04 Resp 14 03/24/21 11:04 BP 116/66 03/24/21 11:04 Pulse Ox 100 03/24/21 11:04
--- NOTE | 2021-03-25 08:34 | OR ---
SURGEON: Jer Galarza MD DATE OF PROCEDURE: 03/24/2021 PREOPERATIVE DIAGNOSES: 1. Intrauterine 15 weeks. 2. Cervical incompetence. POSTOPERATIVE DIAGNOSES: 1. Intrauterine 15 weeks. 2. Cervical incompetence. OPERATION PERFORMED: Becker cerclage using #5 [place] band. PRIMARY SURGEON: Jer Galarza MD ENVIRONMENTAL HEALTH PHYSICIAN: OR tech. ANESTHESIA: Spinal. ESTIMATED BLOOD LOSS: Less than 50 mL. COMPLICATIONS: None. INDICATIONS FOR SURGERY: Refer to the admit note. PROCEDURE IN DETAIL: The patient was brought to the OR, properly identified, and after adequate level of spinal anesthesia, the patient was placed in lithotomy position, prepped and draped in sterile fashion as usual. Straight catheter was used to empty the bladder, and weighted speculum was placed in the vagina. A ring forceps was applied to the upper and lower cervical leaves, and using a #5 [place] band, Becker cerclage was performed in the usual manner without any problem and tied with due amount of tension to close the cervix without strangling. Once this was accomplished, inspection of the operative field shows no oozing, no bleeding, and then the procedure ended. Instrument and sponge counts were correct. The patient tolerated the procedure well, went to recovery room in stable general condition. NINA / KRISTIN /[id number]
== END 2021-03-24 12:42 | disposition home or self-care (01) ==
LOC: MW.SDS 09:20
PROVIDERS: ATTEND Obstetrics & Gynecology
DX: O34.32 Maternal care for cervical incompetence, second trimester (principal); Z3A.15 15 weeks gestation of pregnancy
CPT/HCPCS: 59320; J0131; J2400; J2704; J7120

== ENCOUNTER 2021-09-01 05:17 | Inpatient (IN) | payer BC ==
[2021-09-01] MEDS ORDERED: Citric Acid/Sodium Citrate Solution 30 ML Cup PO ONE (05:28)
[2021-09-01] MEDS ORDERED: Sodium Chloride 0.9% 10 ML Syringe FLUSH PRN (05:28)
[2021-09-01] MEDS ORDERED: Sodium Chloride 0.9% 20 ML SDV IV PRN (05:28)
[2021-09-01] MEDS ORDERED: Sodium Chloride 0.9% 2.5 ML Syringe FLUSH PRN (05:28)
[2021-09-01] MEDS ORDERED: Oxytocin/0.9 % Sodium Chloride 30 UNIT/500 ML BAG IV SCH (05:30)
[2021-09-01] MEDS: Lactated Ringers 1,000 ML IV SCH ×4 (05:55→21:22)
[2021-09-01] MEDS ORDERED: Lidocaine 2% 100 MG/5 ML Syringe ONE (06:59)
[2021-09-01] MEDS ORDERED: Ropivacaine 0.5% 5 MG/ML 30 ML SDV ONE ×2 (06:59)
[2021-09-01] MEDS ORDERED: Ondansetron 4 MG/2 ML SDV ONE ×2 (06:59)
[2021-09-01] MEDS ORDERED: Morphine PF 10 MG/10 ML SDV ONE (06:59)
[2021-09-01] MEDS ORDERED: Metoclopramide 10 MG/2 ML SDV IVPUSH PRN (07:00)
[2021-09-01] MEDS ORDERED: diphenhydrAMINE 50 MG/ML SDV IVPUSH PRN (07:00)
[2021-09-01] MEDS ORDERED: fentaNYL 100 MCG/2 ML SDV IVPUSH PRN ×2 (07:00)
[2021-09-01] MEDS ORDERED: Oxytocin 10 Units/1 ML SDV ONE ×3 (07:00)
[2021-09-01] MEDS ORDERED: Acetaminophen/oxyCODONE 325-5 MG Tab PO PRN ×2 (07:00→09:33)
[2021-09-01] MEDS ORDERED: Ondansetron 4 MG/2 ML SDV IVPUSH PRN ×3 (07:00→09:33)
[2021-09-01] MEDS ORDERED: Albuterol 0.083% 2.5 MG/3 ML Neb Soln NEB PRN (07:00)
[2021-09-01] MEDS ORDERED: Nalbuphine 10 MG/1 ML Vial IVPUSH PRN (07:00)
[2021-09-01] MEDS ORDERED: Naloxone 0.4 MG/ML SDV IVPUSH PRN (07:00)
[2021-09-01] MEDS ORDERED: HYDROmorphone 1 MG/ML Syringe IVPUSH PRN (07:00)
[2021-09-01] MEDS ORDERED: Morphine 4 MG/ML VIAL IVPUSH PRN (07:00)
[2021-09-01] MEDS ORDERED: ceFAZolin 2 GM in Premix Bag 1 BAG IV ONE (07:30)
[2021-09-01] MEDS ORDERED: Octyl 2-Cyanoacrylate 1 Tube ONE ×2 (07:32→09:30)
[2021-09-01] MEDS ORDERED: Phenylephrine 1% 10 MG/ML SDV ONE (08:59)
[2021-09-01] MEDS ORDERED: Misoprostol 200 MCG Tab RECTAL PRN (09:33)
[2021-09-01] MEDS ORDERED: Oxytocin 10 Units/1 ML SDV IM PRN (09:33)
[2021-09-01] MEDS ORDERED: Lanolin 100% Cream 7 GM Tube TOP PRN (09:33)
[2021-09-01] MEDS ORDERED: Tranexamic Acid 1,000 MG in Sodium Chloride 0.9% 100 ML IV PRN (09:33)
[2021-09-01] MEDS ORDERED: Bisacodyl 10 MG Supp RECTAL PRN (09:33)
[2021-09-01] MEDS ORDERED: Methylergonovine 0.2 MG/1 ML Amp IM PRN (09:33)
[2021-09-01] MEDS ORDERED: Oxytocin/Lactated Ringers 30 UNIT/500 ML BAG IV SCH (09:45)
[2021-09-01] MEDS: diphenhydrAMINE 50 MG/ML SDV IVPUSH PRN ×3 (11:17→23:31)
[2021-09-01] MEDS: Ketorolac 30 MG/ML SDV IVPUSH SCH ×3 (11:18→23:30)
[2021-09-01] MEDS: Docusate Sodium 100 MG Cap PO SCH (21:21)
[2021-09-02] MEDS: Ketorolac 30 MG/ML SDV IVPUSH SCH ×2 (05:20→11:00)
[2021-09-02] MEDS: Docusate Sodium 100 MG Cap PO SCH ×2 (11:00→21:01)
[2021-09-02] MEDS: Ibuprofen 800 MG Tab PO PRN (21:01)
[2021-09-02] MEDS: Acetaminophen/oxyCODONE 325-5 MG Tab PO PRN (21:02)
[2021-09-03] MEDS: Acetaminophen/oxyCODONE 325-5 MG Tab PO PRN ×2 (08:24→15:17)
[2021-09-03] MEDS: Docusate Sodium 100 MG Cap PO SCH (08:26)
[2021-09-03] MEDS: Ibuprofen 800 MG Tab PO PRN (11:53)
== END 2021-09-03 15:38 | disposition home or self-care (01) | DRG 540 ==
LOC: MW.OB 05:17
PROVIDERS: ADMIT Obstetrics & Gynecology; ATTEND Obstetrics & Gynecology
PROC: 10D00Z1 Extraction of Products of Conception, Low, Open Approach (ICD-10-PCS; principal; 2021-09-01)
DX: O34.33 Maternal care for cervical incompetence, third trimester (principal); O34.211 Maternal care for low transverse scar from previous cesarean delivery; Z37.0 Single live birth; Z3A.38 38 weeks gestation of pregnancy
CPT/HCPCS: 01961; 36415; 59025; 64488; 85014; 85018; 85027; 86592; 86850; 86900; 86901; A9270-GY; J1200; J1885; J2270; J2300; J2370; J2405; J2590; J2765; J2795; J7120